=== PATIENT | female | born 1985 | race American Indian/Alaskan Native ===

== ENCOUNTER 2017-06-27 09:45 | Inpatient (IN) | payer MEDICAID ==
[2017-06-27] MEDS ORDERED: Butorphanol 1 MG/ML SDV IVPUSH PRN (10:15)
[2017-06-27] MEDS ORDERED: Methylergonovine 0.2 MG/1 ML Amp IM PRN (10:15)
[2017-06-27] MEDS ORDERED: Sodium Chloride 0.9% 10 ML Syringe FLUSH PRN (10:15)
[2017-06-27] MEDS ORDERED: Lidocaine 1% 50 ML MDV INJECT PRN (10:15)
[2017-06-27] MEDS ORDERED: Carboprost Tromethamine 250 MCG/1 ML Amp IM PRN (10:15)
[2017-06-27] MEDS ORDERED: Oxytocin/Lactated Ringers 30 UNIT/500 ML BAG IV SCH ×2 (10:15→13:45)
[2017-06-27] MEDS ORDERED: Sodium Chloride 0.9% 2.5 ML Syringe FLUSH PRN (10:15)
[2017-06-27] MEDS ORDERED: Misoprostol 200 MCG Tab PO PRN (10:15)
[2017-06-27] MEDS ORDERED: Water For Irrigation,Sterile 1,000 ML Container IRR PRN (10:15)
[2017-06-27] MEDS: Lactated Ringers 1,000 ML IV SCH ×4 (10:30→14:11)
--- NOTE | 2017-06-27 10:30 | PCM.LDHP ---
L&D History of Present Illness - General Date of Service: 06/27/17 Admit Problem/Dx: Patient Status Order with Admit Dx/Problem 06/27/17 10:15 Patient Status [ADT] Routine Admission Diagnosis/Problem Admission Diagnosis/Problem Source of Information: Patient History Limitations: Reports: No Limitations - History of Present Illness Improves with: Reports: None Worsens with: Reports: None Associated Symptoms: Reports: N - Related Data Allergies/Adverse Reactions: Allergies Allergy/AdvReac Type Severity Reaction Status Date / Time codeine Allergy Intermediate Itching Verified 07/15/16 22:32 Home Medications: Home Meds . 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 Musculoskeletal History: Reports: Other (See Below) Neurological History: Reports: None Psychiatric History: Reports: Anxiety Endocrine/Metabolic History: Reports: None Immunologic History: Reports: None Oncologic (Cancer) History: Reports: None Dermatologic History: Reports: None - Past Surgical History Other Musculoskeletal Surgeries/Procedures:: scoliosis Social & Family History - Tobacco Use Smoking Status *Q: Current Every Day Smoker Years of Tobacco use: 10 Packs/Tins Daily: 0.2 Used Tobacco, but Quit: No Month Tobacco Last Used: May Second Hand Smoke Exposure: Yes - Alcohol Use Days Per Week of Alcohol Use: 0 - Recreational Drug Use Recreational Drug Use: No Drug Use in Last 12 Months: Yes Recreational Drug Type: Reports: Marijuana/Hashish Recreational Drug Use Frequency: Socially H&P Review of Systems - Review of Systems: Review Of Systems: See Below General: Reports: No Symptoms HEENT: Reports: No Symptoms Pulmonary: Reports: No Symptoms Cardiovascular: Reports: No Symptoms Gastrointestinal: Reports: No Symptoms Genitourinary: Reports: No Symptoms Musculoskeletal: Reports: No Symptoms Skin: Reports: No Symptoms Psychiatric: Reports: No Symptoms Neurological: Reports: No Symptoms Hematologic/Lymphatic: Reports: No Symptoms Immunologic: Reports: No Symptoms L&D Exam - Exam Exam: See Below - Vital Signs Weight: 81.647 kg - OB Specific Contraction Intensity: Moderate Movement: Active Heart Tones: Present Presentation: Vertex - Bae Score Bae Score Cervix Position: Anterior Bae Score Consistency: Soft Bae Score Effacement: 51-70% Bae Score Dilation: 3-4 cm Bae Score Infant's Station: -1 ,0 Bae Score Total: 10 - Exam General: Alert, Oriented HEENT: PERRLA, Conjunctiva Clear, EACs Clear, EOMI, Hearing Intact, Mucosa Moist & [place], Nares Patent, Normal Nasal Septum, Posterior Pharynx Clear, TMs Clear Neck: Supple, Trachea Midline Lungs: Clear to Auscultation, Normal Respiratory Effort Cardiovascular: Regular Rate, Regular Rhythm GI/Abdominal Exam: Normal Bowel Sounds, Soft, Non-Tender, No Organomegaly, No Distention, No Abnormal Bruit, No Mass, Pelvis Stable Rectal Exam: Normal Exam, Normal Rectal Tone Genitourinary: Normal external exam, Normal bimanual exam, Normal speculum exam Back Exam: Normal Inspection, Full Range of Motion Extremities: Normal Inspection, Normal Range of Motion, Non-Tender, No Pedal Edema, Normal Capillary Refill Skin: Warm, Dry, Intact Neurological: Cranial Nerves Intact, Reflexes Equal Bilateral Psychiatric: Alert, Normal Affect, Normal Mood Problem List Initiated/Reviewed/Updated: Yes Orders Last 24hrs: Active Orders 24 hr Category Date Time Status Patient Status [ADT] Routine ADT 06/27/17 10:15 Active Heart Tones [RC] CONTINUOUS Care 06/27/17 10:15 Active Non Stress Test [RC] PER UNIT ROUTINE Care 06/27/17 10:15 Active May Shower [RC] ASDIRECTED Care 06/27/17 10:15 Active Notify Provider [RC] PRN Care 06/27/17 10:15 Active Up ad Kirsty [RC] ASDIRECTED Care 06/27/17 10:15 Active Vaginal Exam [RC] PRN Care 06/27/17 10:15 Active Vital Signs [RC] PER UNIT ROUTINE Care 06/27/17 10:15 Active Clear Liquid Diet [DIET] Diet 06/27/17 Lunch Active CBC W/O DIFF,HEMOGRAM [HEME] Routine Lab 06/27/17 10:15 Ordered TYPE AND SCREEN [BBK] Routine Lab 06/27/17 10:15 Ordered Butorphanol [Stadol] Med 06/27/17 10:15 Active 1 mg IVPUSH ASDIRECTED PRN Carboprost Tromethamine [Hemabate DS] Med 06/27/17 10:15 Active 250 mcg IM ASDIRECTED PRN Lactated Ringers [Ringers, Lactated] 1,000 ml Med 06/27/17 10:15 Active IV ASDIRECTED Lidocaine 1% [Xylocaine 1%] Med 06/27/17 10:15 Active 50 ml INJECT .ONCE PRN Methylergonovine [Methergine] Med 06/27/17 10:15 Active 0.2 mg IM ASDIRECTED PRN Misoprostol [Cytotec] Med 06/27/17 10:15 Active 200 mcg PO .ONCE PRN Oxytocin/Lactated Ringers [Pitocin in LR 30 Units/500 Med 06/27/17 10:15 Active ML] 30 unit in 500 ml IV ASDIRECTED Sodium Chloride 0.9% [Saline Flush] Med 06/27/17 10:15 Active 10 ml FLUSH ASDIRECTED PRN Sodium Chloride 0.9% [Saline Flush] Med 06/27/17 10:15 Active 2.5 ml FLUSH ASDIRECTED PRN Water For Irrigation,Sterile [Sterile Water for Med 06/27/17 10:15 Active Irrigation] 1,000 ml IRR ASDIRECTED PRN Scalp Electrode [WOMSER] Per Unit Routine Oth 06/27/17 10:15 Ordered Peripheral IV Insertion Adult [OM.PC] Routine Oth 06/27/17 10:15 Ordered Resuscitation Status Routine Resus Stat 06/27/17 10:15 Ordered Medication Orders Butorphanol Tartrate (Stadol) 1 mg IVPUSH ASDIRECTED PRN PRN Reason: Pain Carboprost Tromethamine (Hemabate Ds) 250 mcg IM ASDIRECTED PRN PRN Reason: Post Hemorrhage Lactated Ringer's (Ringers, Lactated) 1,000 mls @ 150 mls/hr IV ASDIRECTED HELIO Oxytocin/Lactated Ringer's (Pitocin In Lr 30 Units/500 Ml) 30 unit in 500 mls @ 999 mls/hr IV ASDIRECTED HELIO PRN Reason: 999 MUNITS/MIN Stop: 06/27/17 10:46 Lidocaine HCl (Xylocaine 1%) 50 ml INJECT .ONCE PRN PRN Reason: Laceration repair Methylergonovine Maleate (Methergine) 0.2 mg IM ASDIRECTED PRN PRN Reason: Post Hemorrhage Misoprostol (Cytotec) 200 mcg PO .ONCE PRN PRN Reason: Post Hemorrhage Sodium Chloride (Saline Flush) 10 ml FLUSH ASDIRECTED PRN PRN Reason: Keep Vein Open Sodium Chloride (Saline Flush) 2.5 ml FLUSH ASDIRECTED PRN PRN Reason: Keep Vein Open Sterile Water (Sterile Water For Irrigation) 1,000 ml IRR ASDIRECTED PRN PRN Reason: delivery Assessment/Plan Comment:: Term in active labor
[2017-06-27] MEDS ORDERED: fentaNYL 100 MCG/2 ML SDV ONE (11:04)
[2017-06-27] MEDS ORDERED: Ropivacaine HCl/PF 100 ML ONE (11:04)
[2017-06-27] MEDS ORDERED: Lidocaine 1% 50 ML MDV ONE (11:18)
[2017-06-27] MEDS ORDERED: Phenylephrine 1% 10 MG/ML SDV ONE (11:42)
--- NOTE | 2017-06-27 11:52 | PCM.PREANE ---
Preanesthetic Assessment - Anesthesia/Transfusion/Family Hx Anesthesia History: Prior Anesthesia Reaction (After review of previous records , it appears pt had severe respiratory depression related to the amount of narcotic she received during labor) Type of Anesthesia Reaction: Excessive Somnolence (with resp depression) Family History of Anesthesia Reaction: No Transfusion History: Prior Transfusion Without Reaction Intubation History: Unknown - Review of Systems General: No Symptoms Pulmonary: No Symptoms Cardiovascular: No Symptoms Gastrointestinal: No Symptoms Neurological: No Symptoms Other: Reports: Anxiety (SEVERE Anxiety related to the trauma of her last delivery) - Physical Assessment NPO Status Date: 06/27/17 NPO Status Time: 11:56 (sips/chips) Blood Pressure: 118/59 Height: 5 ft 4.8 in Weight: 180 lb ASA Class: 2 Mental Status: Alert & Oriented x3 Airway Class: Mallampati = 2 Dentition: Reports: Missing Tooth/Teeth ROM/Head Extension: Full Lungs: Clear to Auscultation, Normal Respiratory Effort Cardiovascular: Regular Rate, Regular Rhythm - Lab Values: Laboratory Last Values WBC 11.81 K/uL (4.0-11.0) H 06/27/17 10:31 RBC 4.93 M/uL (4.30-5.90) 06/27/17 10:31 Hgb 12.0 g/dL (12.0-16.0) 06/27/17 10:31 Hct 38.0 % (36.0-46.0) 06/27/17 10:31 MCV 77.1 fL (80.0-98.0) L 06/27/17 10:31 MCH 24.3 pg (27.0-32.0) L 06/27/17 10:31 MCHC 31.6 g/dL (31.0-37.0) 06/27/17 10:31 RDW Std Deviation 47.4 fl (28.0-62.0) 06/27/17 10:31 RDW Coeff of Kindra 17 % (11.0-15.0) H 06/27/17 10:31 Plt Count 342 K/uL (150-400) 06/27/17 10:31 MPV 9.70 fL (7.40-12.00) 06/27/17 10:31 Nucleated RBC % 0.0 /100WBC 06/27/17 10:31 Nucleated RBCs # 0 K/uL 06/27/17 10:31 Blood Type A POSITIVE 06/27/17 10:31 Antibody Screen NEGATIVE 06/27/17 10:31 - Allergies Allergies/Adverse Reactions: Allergies Allergy/AdvReac Type Severity Reaction Status Date / Time codeine Allergy Intermediate Itching Verified 07/15/16 22:32 - Blood Blood Available: No Product(s) Available: None - Anesthesia Plan Free Text/Narrative:: Labor Epidural - Acknowledgements Anesthesia Type Planned: Epidural Pt an Appropriate Candidate for the Planned Anesthesia: Yes Alternatives and Risks of Anesthesia Discussed w Pt/Guardian: Yes Pt/Guardian Understands and Agrees with Anesthesia Plan: Yes PreAnesthesia Questionnaire - Past Health History Medical/Surgical History: Denies Medical/Surgical History HEENT History: Reports: Other (See Below) Other HEENT History: hearing loss right side Cardiovascular History: Reports: None Respiratory History: Reports: Intubation, Previous (related to post op transfer after retained placenta with hemorrhage) Gastrointestinal History: Reports: None Genitourinary History: Reports: None 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: , 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 Musculoskeletal History: Reports: Other (See Below) (thoracic scoliosis) Neurological History: Reports: None Psychiatric History: Reports: Anxiety (SEVERE anxiety related last delivery/ intrathecal/retained placenta/ hemorrhage), Panic Attack Endocrine/Metabolic History: Reports: None Immunologic History: Reports: None Oncologic (Cancer) History: Reports: None Dermatologic History: Reports: None - Past Surgical History Female Surgical History: Reports: D&C (retained placenta post delivery coupled with hemorrhage) Other Musculoskeletal Surgeries/Procedures:: scoliosis - SUBSTANCE USE Smoking Status *Q: Current Every Day Smoker Tobacco Use Within Last Twelve Months: Cigarettes Second Hand Smoke Exposure: Yes Days Per Week of Alcohol Use: 0 Recreational Drug Use History: No Recreational Drug Type: Reports: Marijuana/Hashish - HOME MEDS Home Medications: Home Meds . [No Known Home Meds] 07/15/16 [History] - CURRENT (IN HOUSE) MEDS Current Meds: Current Medications Butorphanol Tartrate (Stadol) 1 mg IVPUSH ASDIRECTED PRN PRN Reason: Pain Carboprost Tromethamine (Hemabate Ds) 250 mcg IM ASDIRECTED PRN PRN Reason: Post Hemorrhage Lactated Ringer's (Ringers, Lactated) 1,000 mls @ 150 mls/hr IV ASDIRECTED [facility] Last Admin: 06/27/17 11:07 Dose: 150 mls/hr Lidocaine HCl (Xylocaine 1%) 50 ml INJECT .ONCE PRN PRN Reason: Laceration repair Methylergonovine Maleate (Methergine) 0.2 mg IM ASDIRECTED PRN PRN Reason: Post Hemorrhage Misoprostol (Cytotec) 200 mcg PO .ONCE PRN PRN Reason: Post Hemorrhage Sodium Chloride (Saline Flush) 10 ml FLUSH ASDIRECTED PRN PRN Reason: Keep Vein Open Sodium Chloride (Saline Flush) 2.5 ml FLUSH ASDIRECTED PRN PRN Reason: Keep Vein Open Sterile Water (Sterile Water For Irrigation) 1,000 ml IRR ASDIRECTED PRN PRN Reason: delivery Discontinued Medications Fentanyl (Sublimaze) Confirm Administered Dose 100 mcg .ROUTE .STK-MED ONE Stop: 06/27/17 11:05 Oxytocin/Lactated Ringer's (Pitocin In Lr 30 Units/500 Ml) 30 unit in 500 mls @ 999 mls/hr IV ASDIRECTED [facility] PRN Reason: 999 MUNITS/MIN Stop: 06/27/17 10:46 Ropivacaine (Naropin 0.2%) Confirm Administered Dose 100 mls @ as directed .ROUTE .STK-MED ONE Stop: 06/27/17 11:05 Lidocaine HCl (Xylocaine 1%) Confirm Administered Dose 50 ml .ROUTE .STK-MED ONE Stop: 06/27/17 11:19
[2017-06-27] MEDS ORDERED: Terbutaline 1 MG/ML SDV SUBCUT PRN (13:41)
[2017-06-27] MEDS ORDERED: Ibuprofen 800 MG Tab PO PRN (15:01)
[2017-06-27] MEDS ORDERED: Benzocaine/Menthol 20%-0.5% Spray 78 GM Cannister TOP PRN (15:01)
[2017-06-27] MEDS ORDERED: Bisacodyl 10 MG Supp RECTAL PRN (15:01)
[2017-06-27] MEDS ORDERED: Ibuprofen 400 MG Tab PO PRN (15:01)
[2017-06-27] MEDS ORDERED: Lanolin 100% Cream 7 GM Tube TOP PRN (15:01)
[2017-06-27] MEDS ORDERED: Docusate Sodium 100 MG Cap PO PRN (15:01)
[2017-06-27] MEDS ORDERED: Acetaminophen 500 MG Tab PO PRN (15:01)
[2017-06-27] MEDS ORDERED: Witch Hazel Medicated Pads 40/Jar TOP PRN (15:01)
[2017-06-27] MEDS ORDERED: oxyCODONE 5 MG Tab PO PRN (15:01)
--- NOTE | 2017-06-27 16:05 | PCM48HPAN ---
Post Anesthesia Note - EVALUATION WITHIN 48HRS OF ANESTHETIC Vital Signs in Normal Range: Yes Patient Participated in Evaluation: Yes Respiratory Function Stable: Yes Airway Patent: Yes Cardiovascular Function Stable: Yes Hydration Status Stable: Yes Pain Control Satisfactory: Yes Nausea and Vomiting Control Satisfactory: Yes Mental Status Recovered: Yes - COMMENTS/OBSERVATIONS Free Text/Narrative:: Pt doing well an hour post delivery. Epidural worked great and pt is very thankful for a good experience this delivery. No problems with bleeding postop. No apparent anesthesia complications.
[2017-06-27] MEDS: Acetaminophen 500 MG Tab PO PRN (22:31)
--- NOTE | 2017-06-27 23:56 | OR ---
SURGEON: Brandyn Pope MD DATE OF PROCEDURE: DELIVERY NOTE: Ms. Blank is a 32-year-old patient, she para 3-0-0-3. She is term. She is followed in our clinic primarily by our nurse software systems analyst. She had no problem. Her GBS status was negative. She is admitted early this morning in active labor. At the time of admission, she was 4 to 5 cm complete with bulging bag of water, vertex, and -1 station. The patient is admitted to the hospital where she had epidural anesthesia for labor analgesia. Then, she had an artificial rupture of the membrane by me. The patient required very low-dose Pitocin. She progressed to complete-complete without any problem. She was able to accomplish normal spontaneous vaginal delivery of a female fetus. score was reported to be 8 and 9 and the weight was not available. The placenta delivered spontaneous, complete, and intact. There was no perineal laceration. There is no labial laceration. Estimated blood loss in this 250-300 mL. No complication. heart rate was category one through the entire process of labor. CONCEPCIÓN / PATRICIA /[id number]
[2017-06-28] MEDS: Acetaminophen 500 MG Tab PO PRN ×3 (05:29→16:07)
--- NOTE | 2017-06-28 09:08 | PCM.PNPP ---
- General Info Date of Service: 06/28/17 Functional Status: Reports: Pain Controlled - Review of Systems General: Reports: No Symptoms HEENT: Reports: No Symptoms Pulmonary: Reports: No Symptoms Cardiovascular: Reports: No Symptoms Gastrointestinal: Reports: No Symptoms Genitourinary: Reports: No Symptoms Musculoskeletal: Reports: No Symptoms Skin: Reports: No Symptoms Neurological: Reports: No Symptoms Psychiatric: Reports: No Symptoms - General Info Date of Service: 06/28/17 - Patient Data Vital Signs - Most Recent: Last Vital Signs Temp 36.4 C 06/28/17 05:35 Pulse 97 06/28/17 05:35 Resp 16 06/28/17 05:35 BP 109/63 06/28/17 05:35 Pulse Ox 97 06/28/17 05:35 Weight - Most Recent: 81.647 kg Lab Results - Last 24 Hours: Laboratory Results - last 24 hr 06/27/17 06/27/17 06/28/17 Range/Units 10:31 10:31 04:58 WBC 11.81 H (4.0-11.0) K/uL RBC 4.93 (4.30-5.90) M/uL Hgb 12.0 10.3 L (12.0-16.0) g/dL Hct 38.0 33.0 L (36.0-46.0) % MCV 77.1 L (80.0-98.0) fL MCH 24.3 L (27.0-32.0) pg MCHC 31.6 (31.0-37.0) g/dL RDW Std Deviation 47.4 (28.0-62.0) fl RDW Coeff of Kindra 17 H (11.0-15.0) % Plt Count 342 (150-400) K/uL MPV 9.70 (7.40-12.00) fL Nucleated RBC % 0.0 /100WBC Nucleated RBCs # 0 K/uL Blood Type A POSITIVE Antibody Screen NEGATIVE Med Orders - Current: Current Medications Acetaminophen (Tylenol Extra Strength) 500 mg PO Q4H PRN PRN Reason: Pain Acetaminophen (Tylenol Extra Strength) 1,000 mg PO Q4H PRN PRN Reason: Pain Last Admin: 06/28/17 05:29 Dose: 1,000 mg Benzocaine/Menthol (Dermoplast Pain Relief 20%-0.5% [place]) 78 gm TOP ASDIRECTED PRN PRN Reason: Perineal Comfort Measure Bisacodyl (Dulcolax) 10 mg RECTAL .ONCE PRN PRN Reason: Constipation Butorphanol Tartrate (Stadol) 1 mg IVPUSH ASDIRECTED PRN PRN Reason: Pain Carboprost Tromethamine (Hemabate Ds) 250 mcg IM ASDIRECTED PRN PRN Reason: Post Hemorrhage Docusate Sodium (Colace) 100 mg PO BID PRN PRN Reason: Constipation Emollient Ointment (Lansinoh Hpa) 0 gm TOP ASDIRECTED PRN PRN Reason: Sore Nipples Lactated Ringer's (Ringers, Lactated) 1,000 mls @ 150 mls/hr IV ASDIRECTED HELIO Last Admin: 06/27/17 14:11 Dose: 150 mls/hr Oxytocin/Lactated Ringer's (Pitocin In Lr 30 Units/500 Ml) 30 unit in 500 mls @ 2 mls/hr IV TITRATE HELIO; 2 MUNITS/MIN PRN Reason: Protocol Last Admin: 06/27/17 14:12 Dose: 2 munits/min, 2 mls/hr Ibuprofen (Motrin) 400 mg PO Q4H PRN PRN Reason: Pain Ibuprofen (Motrin) 800 mg PO Q6H PRN PRN Reason: Pain Last Admin: 06/27/17 20:43 Dose: 800 mg Lidocaine HCl (Xylocaine 1%) 50 ml INJECT .ONCE PRN PRN Reason: Laceration repair Methylergonovine Maleate (Methergine) 0.2 mg IM ASDIRECTED PRN PRN Reason: Post Hemorrhage Misoprostol (Cytotec) 200 mcg PO .ONCE PRN PRN Reason: Post Hemorrhage Oxycodone HCl (Oxycodone) 5 mg PO Q2H PRN PRN Reason: Pain Sodium Chloride (Saline Flush) 10 ml FLUSH ASDIRECTED PRN PRN Reason: Keep Vein Open Sodium Chloride (Saline Flush) 2.5 ml FLUSH ASDIRECTED PRN PRN Reason: Keep Vein Open Sterile Water (Sterile Water For Irrigation) 1,000 ml IRR ASDIRECTED PRN PRN Reason: delivery Terbutaline Sulfate (Brethine) 0.25 mg SUBCUT ASDIRECTED PRN PRN Reason: Tacysystole Witch Leola (Tucks) 1 pad TOP ASDIRECTED PRN PRN Reason: comfort care Discontinued Medications Fentanyl (Sublimaze) Confirm Administered Dose 100 mcg .ROUTE .STK-MED ONE Stop: 06/27/17 11:05 Oxytocin/Lactated Ringer's (Pitocin In Lr 30 Units/500 Ml) 30 unit in 500 mls @ 999 mls/hr IV ASDIRECTED HELIO PRN Reason: 999 MUNITS/MIN Stop: 06/27/17 10:46 Ropivacaine (Naropin 0.2%) Confirm Administered Dose 100 mls @ as directed .ROUTE .STK-MED ONE Stop: 06/27/17 11:05 Lidocaine HCl (Xylocaine 1%) Confirm Administered Dose 50 ml .ROUTE .STK-MED ONE Stop: 06/27/17 11:19 Phenylephrine HCl (Kody-Synephrine) Confirm Administered Dose 10 mg .ROUTE .STK- MED ONE Stop: 06/27/17 11:43 - Infant Interaction Infant Disposition, : in Room with Family Interaction: Holding Infant Feeding: Attempted ; Nursed Fair/Poor Support Person: - Recovery Exam Fundal Tone: Firm Fundal Level: At Umbilicus Fundal Placement: Midline Lochia Amount: Small Lochia Color: Rubra/Red Perineum Description: Intact, Minimal Bruising/Swelling Episiotomy/Laceration: None Bladder Status: Voiding Urinary Elimination: Voided - Exam General: Alert, Oriented HEENT: Pupils Equal Neck: Supple Lungs: Clear to Auscultation, Normal Respiratory Effort Cardiovascular: Regular Rate, Regular Rhythm GI/Abdominal Exam: Normal Bowel Sounds, Soft, Non-Tender, No Organomegaly, No Distention, No Abnormal Bruit, No Mass, Pelvis Stable Extremities: Normal Inspection, Normal Range of Motion, Non-Tender, No Pedal Edema, Normal Capillary Refill Skin: Warm, Dry, Intact Wound/Incisions: Healing Well Neurological: No New Focal Deficit Psy/Mental Status: Alert, Normal Affect, Normal Mood - Problem List Review Problem List Initiated/Reviewed/Updated: Yes - My Orders Last 24 Hours: My Active Orders 06/27/17 10:15 May Shower [RC] ASDIRECTED Butorphanol [Stadol] 1 mg IVPUSH ASDIRECTED PRN Carboprost Tromethamine [Hemabate DS] 250 mcg IM ASDIRECTED PRN Lactated Ringers [Ringers, Lactated] 1,000 ml IV ASDIRECTED Lidocaine 1% [Xylocaine 1%] 50 ml INJECT .ONCE PRN Methylergonovine [Methergine] 0.2 mg IM ASDIRECTED PRN Misoprostol [Cytotec] 200 mcg PO .ONCE PRN Sodium Chloride 0.9% [Saline Flush] 10 ml FLUSH ASDIRECTED PRN Sodium Chloride 0.9% [Saline Flush] 2.5 ml FLUSH ASDIRECTED PRN Water For Irrigation,Sterile [Sterile Water for Irrigation] 1,000 ml IRR ASDIRECTED PRN Scalp Electrode [WOMSER] Per Unit Routine Peripheral IV Insertion Adult [OM.PC] Routine Resuscitation Status Routine 06/27/17 13:41 Bedrest Bathroom Privileges [RC] ASDIRECTED Vital Signs [RC] PER UNIT ROUTINE Terbutaline [Brethine] 0.25 mg SUBCUT ASDIRECTED PRN 06/27/17 13:45 Oxytocin/Lactated Ringers [Pitocin in LR 30 Units/500 ML] 30 unit in 500 ml IV TITRATE Medication Administration Instruction [OM.PC] Q3H 06/27/17 15:01 Patient Status [ADT] Routine Up ad Kirsty [RC] ASDIRECTED Acetaminophen [Tylenol Extra Strength] 1,000 mg PO Q4H PRN Acetaminophen [Tylenol Extra Strength] 500 mg PO Q4H PRN Benzocaine/Menthol [Dermoplast Pain Relief 20%-0.5% [place]] 78 gm TOP ASDIRECTED PRN Bisacodyl [Dulcolax] 10 mg RECTAL .ONCE PRN Docusate Sodium [Colace] 100 mg PO BID PRN Ibuprofen [Motrin] 400 mg PO Q4H PRN Ibuprofen [Motrin] 800 mg PO Q6H PRN Lanolin [Lansinoh HPA] See Dose Instructions TOP ASDIRECTED PRN Witch Leola [Tucks] 1 pad TOP ASDIRECTED PRN oxyCODONE 5 mg PO Q2H PRN Assess Lochia [WOMSER] Per Unit Routine Assess Uterine Involution [WOMSER] Per Unit Routine Peripheral IV Discontinue [OM.PC] Routine - Plan Plan:: Term in active labor
[2017-06-28 18:07] VITALS: BP 119/75
== END 2017-06-28 17:45 | disposition home or self-care (01) | DRG 775 ==
LOC: MW.OBCHECK 09:45 → MW.OB 09:47 → OBSVTOIN 14:54 → MW.OBCHECK 14:57
PROVIDERS: ADMIT Obstetrics & Gynecology; ATTEND Obstetrics & Gynecology
PROC: 10E0XZZ Delivery of Products of Conception, External Approach (ICD-10-PCS; principal; 2017-06-27)
PROC: 10907ZC Drainage of Amniotic Fluid, Therapeutic from Products of Conception, Via Natural or Artificial Opening (ICD-10-PCS; 2017-06-27)
DX: O80 Encounter for full-term uncomplicated delivery (principal); Z3A.40 40 weeks gestation of pregnancy; Z37.0 Single live birth
CPT/HCPCS: 36415; 59025; 85014; 85018; 85027; 86850; 86900; 86901; A9270-GY; J2370; J2795; J3010; J7120

== ENCOUNTER 2017-09-15 08:42 | Emergency (ER) | payer MEDICAID, OTHER ==
--- NOTE | 2017-09-15 09:06 | EDM.PDOC ---
ED HPI GENERAL MEDICAL PROBLEM - General Chief Complaint: Back Pain or Injury Stated Complaint: LOWER BACK PAIN Time Seen by Provider: 09/15/17 09:04 Source of Information: Reports: Patient - History of Present Illness INITIAL COMMENTS - FREE TEXT/NARRATIVE: I went in to see the patient, she had left AMA prior to my arrival in the room I am not certain why she would leave AMA as she was just triaged in back Pain Score (Numeric/FACES): 8 - Related Data Allergies Allergy/AdvReac Type Severity Reaction Status Date / Time codeine Allergy Intermediate Itching Verified 09/15/17 08:49 Home Meds: Home Meds Multivitamin [Multivitamins] 1 each PO DAILY 09/15/17 [History] Past Medical History - Past Health History Medical/Surgical History: Denies Medical/Surgical History HEENT History: Reports: Other (See Below) Other HEENT History: hearing loss right side Cardiovascular History: Reports: None Respiratory History: Reports: Intubation, Previous Gastrointestinal History: Reports: None Genitourinary History: Reports: None 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: , 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 Musculoskeletal History: Reports: Other (See Below) Neurological History: Reports: None Psychiatric History: Reports: Anxiety, Panic Attack Endocrine/Metabolic History: Reports: None Immunologic History: Reports: None Oncologic (Cancer) History: Reports: None Dermatologic History: Reports: None - Infectious Disease History Infectious Disease History: Reports: Chicken Pox - Past Surgical History Female Surgical History: Reports: D&C Other Musculoskeletal Surgeries/Procedures:: scoliosis Social & Family History - Family History Family Medical History: Noncontributory - Tobacco Use Smoking Status *Q: Never Smoker Years of Tobacco use: 10 Packs/Tins Daily: 0.2 Used Tobacco, but Quit: No Month Tobacco Last Used: May Second Hand Smoke Exposure: Yes - Alcohol Use Days Per Week of Alcohol Use: 0 - Recreational Drug Use Recreational Drug Use: No Drug Use in Last 12 Months: Yes Recreational Drug Type: Reports: Marijuana/Hashish Recreational Drug Use Frequency: Socially ED ROS GENERAL - Review of Systems Review Of Systems: ROS reveals no pertinent complaints other than HPI. ED EXAM, GENERAL - Physical Exam Exam: See Below Course - Vital Signs Last Recorded V/S: Last Vital Signs Temp 36.5 C 09/15/17 08:49 Pulse 88 09/15/17 08:49 Resp 18 09/15/17 08:49 BP 99/69 09/15/17 08:49 Pulse Ox 97 09/15/17 08:49 Departure - Departure Time of Disposition: 09:05 Disposition: Against Medical Advice 07 Condition: Undetermined Clinical Impression: Complains of low back pain - Discharge Information Referrals: Chiqui Keyes CNM [Primary Care Provider] -
[2017-09-15 09:16] VITALS: BP 99/69
== END 2017-09-15 09:08 | disposition left against medical advice (07) ==
LOC: MW.ED 08:42
DX: Z53.21 Procedure and treatment not carried out due to patient leaving prior to being seen by health care provider (principal)

== ENCOUNTER 2017-11-12 09:16 | Emergency (ER) | payer MEDICAID ==
[2017-11-12 09:39] VITALS: BP 98/43
[2017-11-12] MEDS ORDERED: Morphine 2 MG/ML Syringe IVPUSH ONE (09:49)
--- NOTE | 2017-11-12 09:52 | EDM.PDOC ---
ED HPI GENERAL MEDICAL PROBLEM - General Chief Complaint: Skin Complaint Stated Complaint: RASHES ALL OVER BODY Time Seen by Provider: 11/12/17 09:51 Source of Information: Reports: Patient - History of Present Illness INITIAL COMMENTS - FREE TEXT/NARRATIVE: HISTORY AND PHYSICAL: History of present illness: [Patient presents with pain and areas of redness warmth and induration on her back one small area left flank approximately 1-1/4 inch in diameter no fluctuance but firm and very tender, she has a larger palms sized area over the right shoulder very firm very tender warm no fluctuance No fever nausea vomiting chills sweats ] Review of systems: As per history of present illness and below otherwise all systems reviewed and negative. Past medical history: As per history of present illness and as reviewed below otherwise noncontributory. Surgical history: As per history of present illness and as reviewed below otherwise noncontributory. Social history: No reported history of drug or alcohol abuse. Family history: As per history of present illness and as reviewed below otherwise noncontributory. Physical exam: HEENT: Atraumatic, normocephalic, pupils reactive, negative for conjunctival pallor or scleral icterus, mucous membranes moist, throat clear, neck supple, nontender, trachea midline. Lungs: Clear to auscultation, breath sounds equal bilaterally, chest nontender. Heart: S1S2, regular, negative for clicks, rubs, or JVD. Abdomen: Soft, nondistended, nontender. Negative for masses or hepatosplenomegaly. Negative for costovertebral tenderness. Pelvis: Stable nontender. Genitourinary: Deferred. Rectal: Deferred. Extremities: Atraumatic, negative for cords or calf pain. Neurovascular unremarkable. Neuro: Awake, alert, oriented. Cranial nerves II through XII unremarkable. Cerebellum unremarkable. Motor and sensory unremarkable throughout. Exam nonfocal. Diagnostics: [CBC CMP UA blood cultures 2 ] Therapeutics: [Normal saline 1.5 mL per hour Vancomycin 1 g IV Morphine 2 mg IV She refused all lab she refused any IV medications or fluids she refuses admission, she did have some low blood pressure on arrival this may have been due to cuff size it is unclear but I was concerned about sepsis voices she refuses to stay despite being informed of possible loss of life or permanent morbidity mortality she voices understanding stating that she would prefer to just at home, she is now being quite obstinate were on arrival she was requesting treatment. Now she will only allow oral treatments and requests/ desires to leave AGAINST MEDICAL ADVICE A prescription for Bactrim double strength by mouth twice a day #20 no refill Percocet 5 mg by mouth now and every 6 hours when necessary prescription provided Patient is certainly extended invitation to return as needed ] Impression: [Cellulitis] Definitive disposition and diagnosis as appropriate pending reevaluation and review of above. spider bites Pain Score (Numeric/FACES): 10 - Related Data Allergies Allergy/AdvReac Type Severity Reaction Status Date / Time codeine Allergy Intermediate Itching Verified 11/12/17 09:35 Home Meds: Home Meds Multivitamin [Multivitamins] 1 each PO DAILY 09/15/17 [History] Past Medical History - Past Health History Medical/Surgical History: Denies Medical/Surgical History HEENT History: Reports: Other (See Below) Other HEENT History: hearing loss right side Cardiovascular History: Reports: None Respiratory History: Reports: Intubation, Previous Gastrointestinal History: Reports: None Genitourinary History: Reports: None 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: , 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 Musculoskeletal History: Reports: Other (See Below) Neurological History: Reports: None Psychiatric History: Reports: Anxiety, Panic Attack Endocrine/Metabolic History: Reports: None Immunologic History: Reports: None Oncologic (Cancer) History: Reports: None Dermatologic History: Reports: None - Infectious Disease History Infectious Disease History: Reports: Chicken Pox - Past Surgical History Female Surgical History: Reports: D&C Other Musculoskeletal Surgeries/Procedures:: scoliosis Social & Family History - Family History Family Medical History: Noncontributory - Tobacco Use Smoking Status *Q: Current Every Day Smoker Years of Tobacco use: 2 Packs/Tins Daily: 0.5 Used Tobacco, but Quit: No Month Tobacco Last Used: May Second Hand Smoke Exposure: Yes - Alcohol Use Days Per Week of Alcohol Use: 0 - Recreational Drug Use Recreational Drug Use: No Drug Use in Last 12 Months: Yes Recreational Drug Type: Reports: Marijuana/Hashish Recreational Drug Use Frequency: Socially ED ROS GENERAL - Review of Systems Review Of Systems: ROS reveals no pertinent complaints other than HPI. ED EXAM, SKIN/RASH Exam: See Below Course - Vital Signs Last Recorded V/S: Last Vital Signs Temp 97.2 F 11/12/17 09:35 Pulse 105 H 11/12/17 09:35 Resp 20 11/12/17 09:35 BP 98/43 L 11/12/17 09:35 Pulse Ox 100 11/12/17 09:35 - Orders/Labs/Meds Orders: Active Orders 24 hr Category Date Time Status CBC WITH AUTO DIFF [HEME] Stat Lab 11/12/17 09:48 Ordered COMPREHENSIVE METABOLIC PN,CMP [CHEM] Stat Lab 11/12/17 09:49 Ordered CULTURE BLOOD [BC] Stat Lab 11/12/17 09:50 Ordered CULTURE BLOOD [BC] Stat Lab 11/12/17 09:50 Ordered LACTIC ACID,WHOLE BLOOD [BG] Stat Lab 11/12/17 09:53 Ordered UA W/MICROSCOPIC [URIN] Stat Lab 11/12/17 09:49 Uncollected Sodium Chloride 0.9% [Normal Saline] 1,000 ml Med 11/12/17 09:53 Active IV STAT Sodium Chloride 0.9% [Normal Saline] 1,000 ml Med 11/12/17 10:00 Active IV STAT Vancomycin [Vancocin] 1 gm Med 11/12/17 09:49 Active Sodium Chloride 0.9% [Normal Saline] 250 ml IV ONETIME Blood Culture x2 Reflex Set [OM.PC] Stat Oth 11/12/17 09:49 Ordered Medication Orders Sodium Chloride (Normal Saline) 1,000 mls @ 125 mls/hr IV STAT HELIO Vancomycin HCl 1 gm/ Sodium (Chloride) 250 mls @ 250 mls/hr IV ONETIME ONE Stop: 11/12/17 10:48 Sodium Chloride (Normal Saline) 1,000 mls @ 999 mls/hr IV STAT ONE Stop: 11/12/17 10:53 Meds: Medications Generic Name Dose Route Start Last Admin Trade Name Freq PRN Reason Stop Dose Admin Sodium Chloride 1,000 mls @ 125 mls/hr 11/12/17 10:00 Normal Saline IV STAT HELIO Vancomycin HCl 1 gm/ Sodium 250 mls @ 250 mls/hr 11/12/17 09:49 Chloride IV 11/12/17 10:48 ONETIME ONE Sodium Chloride 1,000 mls @ 999 mls/hr 11/12/17 09:53 Normal Saline IV 11/12/17 10:53 STAT ONE Discontinued Medications Generic Name Dose Route Start Last Admin Trade Name Freq PRN Reason Stop Dose Admin Morphine Sulfate 2 mg 11/12/17 09:49 Morphine IVPUSH 11/12/17 09:50 ONETIME ONE Departure - Departure Time of Disposition: 10:04 Disposition: Against Medical Advice 07 Condition: Poor Clinical Impression: Cellulitis - Discharge Information Referrals: PCP,None [Primary Care Provider] - Forms: ED Department Discharge Additional Instructions: The following information is given to patients seen in the emergency department who are being discharged to home. This information is to outline your options for follow-up care. We provide all patients seen in our emergency department with a follow-up referral. The need for follow-up, as well as the timing and circumstances, are variable depending upon the specifics of your emergency department visit. If you don't have a primary care physician on staff, we will provide you with a referral. We always advise you to contact your personal physician following an emergency department visit to inform them of the circumstance of the visit and for follow-up with them and/or the need for any referrals to a consulting specialist. The emergency department will also refer you to a specialist when appropriate. This referral assures that you have the opportunity for follow-up care with a specialist. All of these measure are taken in an effort to provide you with optimal care, which includes your follow-up. Under all circumstances we always encourage you to contact your private physician who remains a resource for coordinating your care. When calling for follow-up care, please make the office aware that this follow-up is from your recent emergency room visit. If for any reason you are refused follow-up, please contact the [facility] emergency department at and asked to speak to the emergency department charge nurse. - My Orders Last 24 Hours: My Active Orders 11/12/17 09:48 CBC WITH AUTO DIFF [HEME] Stat 11/12/17 09:49 COMPREHENSIVE METABOLIC PN,CMP [CHEM] Stat UA W/MICROSCOPIC [URIN] Stat Vancomycin [Vancocin] 1 gm Sodium Chloride 0.9% [Normal Saline] 250 ml IV ONETIME Blood Culture x2 Reflex Set [OM.PC] Stat 11/12/17 09:50 CULTURE BLOOD [BC] Stat CULTURE BLOOD [BC] Stat 11/12/17 09:53 LACTIC ACID,WHOLE BLOOD [BG] Stat Sodium Chloride 0.9% [Normal Saline] 1,000 ml IV STAT 11/12/17 10:00 Sodium Chloride 0.9% [Normal Saline] 1,000 ml IV STAT - Assessment/Plan Last 24 Hours: My Active Orders 11/12/17 09:48 CBC WITH AUTO DIFF [HEME] Stat 11/12/17 09:49 COMPREHENSIVE METABOLIC PN,CMP [CHEM] Stat UA W/MICROSCOPIC [URIN] Stat Vancomycin [Vancocin] 1 gm Sodium Chloride 0.9% [Normal Saline] 250 ml IV ONETIME Blood Culture x2 Reflex Set [OM.PC] Stat 11/12/17 09:50 CULTURE BLOOD [BC] Stat CULTURE BLOOD [BC] Stat 11/12/17 09:53 LACTIC ACID,WHOLE BLOOD [BG] Stat Sodium Chloride 0.9% [Normal Saline] 1,000 ml IV STAT 11/12/17 10:00 Sodium Chloride 0.9% [Normal Saline] 1,000 ml IV STAT
[2017-11-12] MEDS ORDERED: Sodium Chloride 0.9% 1,000 ML IV ONE (09:53)
[2017-11-12] MEDS ORDERED: Sodium Chloride 0.9% 1,000 ML IV SCH (10:00)
[2017-11-12] MEDS ORDERED: Acetaminophen/oxyCODONE 325-7.5 MG Tab PO ONE (10:06)
[2017-11-12] MEDS ORDERED: Sulfamethoxazole/Trimethoprim 800-160 MG Tab PO ONE (10:08)
== END 2017-11-12 10:20 | disposition left against medical advice (07) ==
LOC: MW.ED 09:16
DX: L03.311 Cellulitis of abdominal wall (principal); Z88.5 Allergy status to narcotic agent; F17.210 Nicotine dependence, cigarettes, uncomplicated
CPT/HCPCS: 99282; A9270; 99283

== ENCOUNTER 2018-08-04 13:50 | Emergency (ER) | payer MEDICAID, SELFPAY ==
[2018-08-04 14:12] VITALS: BP 111/80
[2018-08-04] MEDS ORDERED: Ketorolac 60 MG/2 ML SDV IM ONE (14:14)
--- NOTE | 2018-08-04 14:37 | EDM.PDOC ---
ED HPI GENERAL MEDICAL PROBLEM - General Chief Complaint: Respiratory Problem Stated Complaint: COUGH Time Seen by Provider: 08/04/18 13:55 Source of Information: Reports: Patient History Limitations: Reports: No Limitations - History of Present Illness INITIAL COMMENTS - FREE TEXT/NARRATIVE: History of present illness: []Patient has had chest pain with severe cough for the past 2 weeks, she was cleaning 4 days ago and felt severe low back pain. Patient denies any numbness, tingling or urinary or fecal incontinence. Review of systems: As per history of present illness and below otherwise all systems reviewed and negative. Past medical history: As per history of present illness and as reviewed below otherwise noncontributory. Surgical history: As per history of present illness and as reviewed below otherwise noncontributory. Social history: No reported history of drug or alcohol abuse. Family history: As per history of present illness and as reviewed below otherwise noncontributory. Physical exam: General: Well developed, well nourished in NAD HEENT: Atraumatic, normocephalic, pupils reactive, negative for conjunctival pallor or scleral icterus, mucous membranes moist, throat clear, neck supple, nontender, trachea midline. Lungs: Coarse sounds to auscultation, equal bilaterally, chest nontender. Heart: S1S2, regular, negative for clicks, rubs, or JVD. Abdomen: Soft, nondistended, nontender. Negative for masses or hepatosplenomegaly. Negative for costovertebral tenderness. Pelvis: Stable nontender. Genitourinary: Deferred. Rectal: Deferred. Extremities: Atraumatic, negative for cords or calf pain. Neurovascular unremarkable. Neuro: Awake, alert, oriented. Cranial nerves II through XII unremarkable. Cerebellum unremarkable. Motor and sensory unremarkable throughout. Exam nonfocal. Skin:warm and dry Diagnostics: Chest x-ray, UA, hCG all negative Therapeutics: Toradol IM ED Course: unremarkable Impression: Acute bronchitis, lumbar strain Prescriptions: Dale Corrales, Plan: ibuprofen and ice for pain, take prescribes meds and follow up with primary care 12 days return if symptoms worsen or change. Definitive disposition and diagnosis as appropriate pending reevaluation and review of above. Lower Back Pain Score (Numeric/FACES): 10 - Related Data Allergies Allergy/AdvReac Type Severity Reaction Status Date / Time codeine Allergy Intermediate Itching Verified 08/04/18 14:12 acetaminophen Allergy Itching Verified 08/04/18 14:12 [From Tylenol-Codeine #3] hydrocodone Allergy Itching Verified 08/04/18 14:12 Home Meds: Home Meds Azithromycin [Zithromax] 250 mg PO DAILY #6 tab 08/04/18 [Rx] Benzonatate [Tessalon Perle] 100 mg PO TID PRN #20 capsule 08/04/18 [Rx] Past Medical History - Past Health History Medical/Surgical History: Denies Medical/Surgical History HEENT History: Reports: Other (See Below) Other HEENT History: hearing loss right side Cardiovascular History: Reports: None Respiratory History: Reports: Intubation, Previous Gastrointestinal History: Reports: None Genitourinary History: Reports: None 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: , 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 Musculoskeletal History: Reports: Other (See Below) Neurological History: Reports: None Psychiatric History: Reports: Anxiety, Panic Attack Endocrine/Metabolic History: Reports: None Immunologic History: Reports: None Oncologic (Cancer) History: Reports: None Dermatologic History: Reports: None - Infectious Disease History Infectious Disease History: Reports: Chicken Pox, MRSA - Past Surgical History Female Surgical History: Reports: D&C Other Musculoskeletal Surgeries/Procedures:: scoliosis Social & Family History - Family History Family Medical History: Noncontributory - Tobacco Use Smoking Status *Q: Current Every Day Smoker Years of Tobacco use: 12 Packs/Tins Daily: 0.5 - Caffeine Use Caffeine Use: Reports: Coffee - Recreational Drug Use Recreational Drug Use: No ED ROS GENERAL - Review of Systems Review Of Systems: ROS reveals no pertinent complaints other than HPI. ED EXAM, GENERAL - Physical Exam Exam: See Below (See history of present illness) Course - Vital Signs Last Recorded V/S: Last Vital Signs Temp 98.0 F 08/04/18 14:08 Pulse 116 H 08/04/18 14:08 Resp 21 H 08/04/18 14:08 BP 111/80 08/04/18 14:08 Pulse Ox 98 08/04/18 14:08 - Orders/Labs/Meds Orders: Active Orders 24 hr Category Date Time Status Chest 2V [CR] Stat Exams 08/04/18 14:13 Taken Labs: Laboratory Tests 08/04/18 08/04/18 Range/Units 14:24 14:24 Urine Color YELLOW Urine Appearance SLT CLOUDY Urine pH 7.5 (5.0-8.0) Ur Specific [place] 1.020 (1.001-1.035) Urine Protein NEGATIVE (NEGATIVE) mg/dL Urine Glucose (UA) NEGATIVE (NEGATIVE) mg/dL Urine Ketones NEGATIVE (NEGATIVE) mg/dL Urine Occult Blood NEGATIVE (NEGATIVE) Urine Nitrite NEGATIVE (NEGATIVE) Urine Bilirubin NEGATIVE (NEGATIVE) Urine Urobilinogen 0.2 (<2.0) EU/dL Ur Leukocyte Esterase NEGATIVE (NEGATIVE) Urine RBC 0-1 (0-2/HPF) Urine WBC 0-4 (0-5/HPF) Ur Epithelial Cells FEW (NONE-FEW) Urine Bacteria FEW (NEGATIVE) Urine HCG, Qual NEGATIVE (NEGATIVE) Meds: Medications Discontinued Medications Generic Name Dose Route Start Last Admin Trade Name Freq PRN Reason Stop Dose Admin Ketorolac Tromethamine 60 mg 08/04/18 14:14 08/04/18 14:34 Toradol IM 08/04/18 14:15 60 mg ONETIME ONE Administration Departure - Departure Time of Disposition: 15:10 Disposition: Home, Self-Care 01 Condition: Good Clinical Impression: Acute bronchitis Qualifiers: Bronchitis organism: unspecified organism Qualified Code(s): J20.9 - Acute bronchitis, unspecified - Discharge Information *PRESCRIPTION DRUG MONITORING PROGRAM REVIEWED*: No *COPY OF PRESCRIPTION DRUG MONITORING REPORT IN PATIENT MARLEEN: No Prescriptions: Azithromycin [Zithromax] 250 mg PO DAILY #6 tab Benzonatate [Tessalon Perle] 100 mg PO TID PRN #20 capsule PRN Reason: Cough Referrals: PCP,None [Primary Care Provider] - Forms: ED Department Discharge Additional Instructions: The following information is given to patients seen in the emergency department who are being discharged to home. This information is to outline your options for follow-up care. We provide all patients seen in our emergency department with a follow-up referral. The need for follow-up, as well as the timing and circumstances, are variable depending upon the specifics of your emergency department visit. If you don't have a primary care physician on staff, we will provide you with a referral. We always advise you to contact your personal physician following an emergency department visit to inform them of the circumstance of the visit and for follow-up with them and/or the need for any referrals to a consulting specialist. The emergency department will also refer you to a specialist when appropriate. This referral assures that you have the opportunity for follow-up care with a specialist. All of these measure are taken in an effort to provide you with optimal care, which includes your follow-up. Under all circumstances we always encourage you to contact your private physician who remains a resource for coordinating your care. When calling for follow-up care, please make the office aware that this follow-up is from your recent emergency room visit. If for any reason you are refused follow-up, please contact the [facility] Emergency Department at and asked to speak to the emergency department charge nurse. Meds as prescribed, use 20 minutes of ice at minimum for back pain and take ibuprofen, follow up with primary care, return if symptoms worsen or change. [facility] [address] [place] [id number] - My Orders Last 24 Hours: My Active Orders 08/04/18 14:13 Chest 2V [CR] Stat - Assessment/Plan Last 24 Hours: My Active Orders 08/04/18 14:13 Chest 2V [CR] Stat
--- NOTE | 2018-08-06 14:16 | CR ---
EXAM DATE: 08/04/18 PATIENT'S AGE: 33 Patient: SHARLENE BERNARDO Facility: [place], [place] Site . Site : 1985 Study: XRay Chest [id number] 2:56:38 PM Ordering Physician: Fazal Ly Final Report: INDICATION: Cough TECHNIQUE: Two view chest. No comparison studies are available. FINDINGS: Thoracolumbar scoliosis. Normal cardiac and mediastinal silhouette. Postsurgical or congenital changes of the right upper ribs. No acute airspace or interstitial process. No effusion or pneumothorax. Dictated by Stephenie Bernardo MD @ Aug 04 2018 3:34PM (Electronic Signature) Report Signed by Proxy. GURWINDER
== END 2018-08-04 15:20 | disposition home or self-care (01) ==
LOC: MW.ED 13:50
DX: S39.012A Strain of muscle, fascia and tendon of lower back, initial encounter (principal); J20.9 Acute bronchitis, unspecified; Z88.5 Allergy status to narcotic agent; F17.210 Nicotine dependence, cigarettes, uncomplicated; X50.9XXA Other and unspecified overexertion or strenuous movements or postures, initial encounter
CPT/HCPCS: 71046; 81001; 81025; 96372; 99283; J1885

== ENCOUNTER 2019-12-21 22:44 | Emergency (ER) | payer MEDICAID, OTHER ==
[2019-12-21] MEDS ORDERED: Ondansetron 4 MG Tab.DIS PO ONE (23:32)
--- NOTE | 2019-12-21 23:44 | EDM.PDOC ---
ED HPI GENERAL MEDICAL PROBLEM - General Chief Complaint: Gastrointestinal Problem Stated Complaint: VOMITING Time Seen by Provider: 12/21/19 23:30 Source of Information: Reports: Patient - History of Present Illness INITIAL COMMENTS - FREE TEXT/NARRATIVE: The patient is a 34-year-old female who presents to the ER for some nausea and vomiting. She states that for the past few days she has had a lot of coughing, audible nasal congestion, generalized myalgias and feels feverish, along with some nausea and vomiting. No shortness of breath, no abdominal pain, no other acute complaints. Middle Chest Pain Score (Numeric/FACES): 9 - Related Data Allergies Allergy/AdvReac Type Severity Reaction Status Date / Time codeine Allergy Intermediate Itching Verified 12/21/19 22:58 acetaminophen Allergy Itching Verified 12/21/19 22:58 [From Tylenol-Codeine #3] hydrocodone Allergy Itching Verified 12/21/19 22:58 Home Meds: Home Meds Ondansetron [Zofran ODT] 4 mg PO Q4H PRN 5 Days #20 tab.dis 12/21/19 [Rx] medroxyPROGESTERone Acetate [Depo-Provera] 150 mg IM 12/21/19 [History] Past Medical History - Past Health History Medical/Surgical History: Denies Medical/Surgical History HEENT History: Reports: Other (See Below) Other HEENT History: hearing loss right side Cardiovascular History: Reports: None Respiratory History: Reports: Intubation, Previous Gastrointestinal History: Reports: None Genitourinary History: Reports: None 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: , 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 Musculoskeletal History: Reports: Other (See Below) Neurological History: Reports: None Psychiatric History: Reports: Anxiety, Depression, Panic Attack, PTSD Endocrine/Metabolic History: Reports: None Hematologic History: Reports: None Immunologic History: Reports: None Oncologic (Cancer) History: Reports: None Dermatologic History: Reports: None - Infectious Disease History Infectious Disease History: Reports: Chicken Pox - Past Surgical History Head Surgeries/Procedures: Reports: None Female Surgical History: Reports: D&C Other Musculoskeletal Surgeries/Procedures:: scoliosis Social & Family History - Family History Family Medical History: Noncontributory - Tobacco Use Smoking Status *Q: Current Every Day Smoker Years of Tobacco use: 20 Packs/Tins Daily: 0.5 - Caffeine Use Caffeine Use: Reports: Coffee - Recreational Drug Use Recreational Drug Use: No ED ROS GENERAL - Review of Systems Review Of Systems: See Below (Positive for fevers, positive for cough, positive nasal congestion, positive for myalgias, positive for nausea vomiting, all other Positives and pertinent negatives as per HPI. All other pertinent systems were reviewed and are negative) ED EXAM, GI/ABD - Physical Exam Exam: See Below Text/Narrative:: Constitutional: Nontoxic, looks like she does not feel well with a harsh bronchial cough, sounds very nasally congested HEENT.: Normocephalic, Atraumatic, PERRL, EOMI, External ears are atraumatic, Oropharynx clear and moist without lesions or masses, nares are congested without epistaxis Neck: Normal range of motion, Trachea Midline, No stridor Respiratory.: No respiratory distress, No tachypnea, Lungs Clear to Auscultation bilaterally without wheezes, rales, or rhonchi, bronchial cough Cardiovascular.: Regular rate and Rhythm without murmurs, rubs, or gallops, good peripheral perfusion GI: Abdomen soft and non tender, no masses, no rebound, rigidity, or guarding Genital Urinary: Deferred Musculoskeletal: Good range of motion. All 4 extremities present and atraumatic , no edema Back: Full Range of Motion Skin: Warm, Dry, Color is ethnicity appropriate, No acute rash. Lymphatic: No lymphadenopathy noted Neurological: Alert, Awake and oriented x 3, No focal deficits noted appreciate , GCS 15 Psych: Affect, Judgement, mood normal Course - Vital Signs Text/Narrative:: History and exam are consistent with a viral syndrome. The patient will be given a dose of Zofran in the ER and some Toradol and a prescription for Zofran. Stable for discharge and conservative outpatient care. Last Recorded V/S: Last Vital Signs Temp 36.7 C 12/22/19 00:00 Pulse 79 12/22/19 00:00 Resp 18 12/22/19 00:00 BP 112/60 12/22/19 00:00 Pulse Ox 98 12/22/19 00:00 - Orders/Labs/Meds Meds: Medications Discontinued Medications Generic Name Dose Route Start Last Admin Trade Name Freq PRN Reason Stop Dose Admin Ketorolac Tromethamine 60 mg 12/21/19 23:40 12/21/19 23:49 Toradol IM 12/21/19 23:41 Not Given ONETIME ONE Ondansetron HCl 4 mg 12/21/19 23:32 12/21/19 23:46 Zofran Odt PO 12/21/19 23:33 4 mg ONETIME ONE Administration Departure - Departure Time of Disposition: 23:41 Disposition: Home, Self-Care 01 Condition: Good Clinical Impression: Viral syndrome - Discharge Information Prescriptions: Ondansetron [Zofran ODT] 4 mg PO Q4H PRN 5 Days #20 tab.dis PRN Reason: Nausea/Vomiting Instructions: Viral Illness, Adult Referrals: PCP,None [Primary Care Provider] - Forms: ED Department Discharge Additional Instructions: VIRAL SYNDROME This appears to be a viral syndrome. They are highly common and variable, causing fevers, colds, coughs, headaches, vomiting, diarrhea, etc. Antibiotics don't work on viruses, and they need to run their course. On average these last 7-10 days, depending upon the virus. There are some that even last up to several weeks. Rest, drink plenty of clear fluids, especially water. You want our urine to be clear to a light yellow. Ibuprofen 800 mg and Tylenol 1000 mg may be taken at the same time every 6 hours as needed for fevers and discomfort. Upper respiratory congestion and sore throats can be improved with cool liquids , humidifiers, cough drops with menthol, honey, tea with honey, and over-the- counter decongestants. Return to the ER if you develop difficulty breathing, or any other concerns. Care Plan Goals: The following information is given to patients seen in the emergency department who are being discharged to home. This information is to outline your options for follow-up care. We provide all patients seen in our emergency department with a follow-up referral. The need for follow-up, as well as the timing and circumstances, are variable depending upon the specifics of your emergency department visit. If you don't have a primary care physician on staff, we will provide you with a referral. We always advise you to contact your personal physician following an emergency department visit to inform them of the circumstance of the visit and for follow-up with them and/or the need for any referrals to a consulting specialist. The emergency department will also refer you to a specialist when appropriate. This referral assures that you have the opportunity for follow-up care with a specialist. All of these measure are taken in an effort to provide you with optimal care, which includes your follow-up. Under all circumstances we always encourage you to contact your private physician who remains a resource for coordinating your care. When calling for follow-up care, please make the office aware that this follow-up is from your recent emergency room visit. If for any reason you are refused follow-up, please contact the [facility] Emergency Department at and asked to speak to the emergency department charge nurse. [facility] [address] [place] [id number] [place] [address] Sepsis Event Note - Evaluation Sepsis Screening Result: No Definite Risk - Focused Exam Vital Signs: Vital Signs Temp Pulse Resp BP Pulse Ox 12/22/19 00:00 36.7 C 79 18 112/60 98 12/21/19 22:55 36.4 C 101 H 20 122/67 97 Date Exam was Performed: 12/22/19 Time Exam was Performed: 03:23
[2019-12-21] MEDS: Ketorolac 60 MG/2 ML SDV IM ONE ×2 (23:46→23:49)
[2019-12-22 00:16] VITALS: BP 112/60; PULSE 79
== END 2019-12-22 | disposition home or self-care (01) ==
LOC: MW.ED 22:44
DX: B34.9 Viral infection, unspecified (principal); F17.210 Nicotine dependence, cigarettes, uncomplicated; Z88.5 Allergy status to narcotic agent; Z88.8 Allergy status to other drugs, medicaments and biological substances
CPT/HCPCS: 99283; A9270; J1885

== ENCOUNTER 2020-03-21 08:14 | Emergency (ER) | payer MEDICAID, OTHER ==
--- NOTE | 2020-03-21 08:25 | EDM.PDOC ---
ED HPI GENERAL MEDICAL PROBLEM - General Chief Complaint: General Stated Complaint: MOUTH COMPLAINT Time Seen by Provider: 03/21/20 08:17 Source of Information: Reports: Patient History Limitations: Reports: No Limitations - History of Present Illness INITIAL COMMENTS - FREE TEXT/NARRATIVE: 34-year-old female presents with left facial and left upper jaw pain since midnight. Denies fever, chills, trauma. She thinks there is an abscess to her upper jaw. ROS: A 10-point review of systems, other than pertinent positives and negatives as stated per HPI, is otherwise negative PHYSICAL EXAM General: AOx4, GCS = 15, mild distress HEENT: dry mucous membrane, tooth #7 Neck: supple, no meningismus, no Kernig or Brudzinski Cardiac: S1S2 RRR Respiratory: CTAB, no crackles or rales, no wheezing Abdomen: Soft, nontender, no rebound or guarding, nondistended, no pulsatile mass. Back: nontender Musculoskeletal: NVI distally, no deformity Neuro: No focal deficits MEDICAL DECISION MAKING: I reviewed the patients past medical records, lab and radiographic findings. I discussed the case with family members. My differential diagnosis included: dental abscess, facial cellulitis, dental pain Onset: Today Location: Reports: Face - Related Data Allergies Allergy/AdvReac Type Severity Reaction Status Date / Time codeine Allergy Intermediate Itching Verified 12/21/19 22:58 acetaminophen Allergy Itching Verified 12/21/19 22:58 [From Tylenol-Codeine #3] hydrocodone Allergy Itching Verified 12/21/19 22:58 Home Meds: Home Meds Ondansetron [Zofran ODT] 4 mg PO Q4H PRN 5 Days #20 tab.dis 12/21/19 [Rx] medroxyPROGESTERone Acetate [Depo-Provera] 150 mg IM 12/21/19 [History] Naproxen [Naprosyn] 500 mg PO Q12HR #10 tab 03/21/20 [Rx] Penicillin V Potassium 500 mg PO Q6HR #40 tab 03/21/20 [Rx] Past Medical History - Past Health History Medical/Surgical History: Denies Medical/Surgical History HEENT History: Reports: Other (See Below) Other HEENT History: hearing loss right side Cardiovascular History: Reports: None Respiratory History: Reports: Intubation, Previous Gastrointestinal History: Reports: None Genitourinary History: Reports: None 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: , 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 Musculoskeletal History: Reports: Other (See Below) Neurological History: Reports: None Psychiatric History: Reports: Anxiety, Depression, Panic Attack, PTSD Endocrine/Metabolic History: Reports: None Hematologic History: Reports: None Immunologic History: Reports: None Oncologic (Cancer) History: Reports: None Dermatologic History: Reports: None - Infectious Disease History Infectious Disease History: Reports: Chicken Pox - Past Surgical History Head Surgeries/Procedures: Reports: None Female Surgical History: Reports: D&C Other Musculoskeletal Surgeries/Procedures:: scoliosis Social & Family History - Family History Family Medical History: Noncontributory - Caffeine Use Caffeine Use: Reports: Coffee ED ROS GENERAL - Review of Systems Review Of Systems: See Below (see dictation) ED EXAM, GENERAL - Physical Exam Exam: See Below (see dictation) Course - Re-Assessments/Exams Free Text/Narrative Re-Assessment/Exam: 03/21/20 08:23 She is stable for discharge. I performed a repeat examination and the patient has not demonstrated any new abnormal findings. Patient exhibits normal vital signs and has exhibited a normal gait. I advised the patient to return to the ER for reevaluation if symptoms worsened, and to follow up with their dentist in 5-7 days. 03/21/20 08:23 Departure - Departure Time of Disposition: 08:23 Disposition: Home, Self-Care 01 Condition: Good Clinical Impression: Facial cellulitis, Dental abscess - Discharge Information *PRESCRIPTION DRUG MONITORING PROGRAM REVIEWED*: Not Applicable *COPY OF PRESCRIPTION DRUG MONITORING REPORT IN PATIENT MARLEEN: Not Applicable Prescriptions: Penicillin V Potassium 500 mg PO Q6HR #40 tab Naproxen [Naprosyn] 500 mg PO Q12HR #10 tab Instructions: Skin Abscess, Cellulitis, Adult, Dental Abscess Referrals: PCP,None [Primary Care Provider] - Additional Instructions: The following information is given to patients seen in the emergency department who are being discharged to home. This information is to outline your options for follow-up care. We provide all patients seen in our emergency department with a follow-up referral. The need for follow-up, as well as the timing and circumstances, are variable depending upon the specifics of your emergency department visit. If you don't have a primary care physician on staff, we will provide you with a referral. We always advise you to contact your personal physician following an emergency department visit to inform them of the circumstance of the visit and for follow-up with them and/or the need for any referrals to a consulting specialist. The emergency department will also refer you to a specialist when appropriate. This referral assures that you have the opportunity for follow-up care with a specialist. All of these measure are taken in an effort to provide you with optimal care, which includes your follow-up. Under all circumstances we always encourage you to contact your private physician who remains a resource for coordinating your care. When calling for follow-up care, please make the office aware that this follow-up is from your recent emergency room visit. If for any reason you are refused follow-up, please contact the [facility] Emergency Department at and asked to speak to the emergency department charge nurse. [facility] - [facility] [address] [place] [id number] [address]
[2020-03-21 08:30] VITALS: PULSE 104
[2020-03-21 09:24] VITALS: BP 108/57
== END 2020-03-21 08:50 | disposition home or self-care (01) ==
LOC: MW.ED 08:14
DX: K04.7 Periapical abscess without sinus (principal); L03.211 Cellulitis of face; Z88.6 Allergy status to analgesic agent; Z88.5 Allergy status to narcotic agent
CPT/HCPCS: 99283

== ENCOUNTER 2020-03-22 04:38 | Emergency (ER) | payer MEDICAID, OTHER ==
[2020-03-22 04:52] VITALS: BP 112/51; PULSE 112
[2020-03-22] MEDS ORDERED: Bupivacaine 0.5% 30 ML SDV INFILT ONE (04:53)
--- NOTE | 2020-03-22 04:57 | EDM.PDOC ---
ED HPI GENERAL MEDICAL PROBLEM - General Chief Complaint: ENT Problem Stated Complaint: ORAL PAIN Time Seen by Provider: 03/22/20 04:39 Source of Information: Reports: Patient History Limitations: Reports: No Limitations - History of Present Illness INITIAL COMMENTS - FREE TEXT/NARRATIVE: 34-year-old female with past medical history of cannabis abuse, tobacco use, panic disorder presenting with dental pain. Reports several days of pain to the left upper side of her mouth. Was seen in the emergency department earlier today and was prescribed oral antibiotics but reports worsening pain since leaving the ED. Pain is now involving her maxillary sinuses and "the inside of my nose". Denies fever, chills, nausea, vomiting. mouth area Pain Score (Numeric/FACES): 10 - Related Data Allergies Allergy/AdvReac Type Severity Reaction Status Date / Time codeine Allergy Intermediate Itching Verified 03/21/20 08:28 acetaminophen Allergy Itching Verified 03/21/20 08:28 [From Tylenol-Codeine #3] hydrocodone Allergy Itching Verified 03/21/20 08:28 Home Meds: Home Meds Naproxen [Naprosyn] 500 mg PO Q12HR #14 tab 03/21/20 [Rx] Penicillin V Potassium 500 mg PO Q6HR #40 tab 03/21/20 [Rx] Past Medical History - Past Health History Medical/Surgical History: Denies Medical/Surgical History HEENT History: Reports: Other (See Below) Other HEENT History: hearing loss right side Cardiovascular History: Reports: None Respiratory History: Reports: Intubation, Previous Gastrointestinal History: Reports: None Genitourinary History: Reports: None 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: , 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 Musculoskeletal History: Reports: Other (See Below) Neurological History: Reports: None Psychiatric History: Reports: Anxiety, Depression, Panic Attack, PTSD Endocrine/Metabolic History: Reports: None Hematologic History: Reports: None Immunologic History: Reports: None Oncologic (Cancer) History: Reports: None Dermatologic History: Reports: None - Infectious Disease History Infectious Disease History: Reports: Chicken Pox - Past Surgical History Head Surgeries/Procedures: Reports: None Female Surgical History: Reports: D&C Other Musculoskeletal Surgeries/Procedures:: scoliosis Social & Family History - Family History Family Medical History: Noncontributory - Caffeine Use Caffeine Use: Reports: Coffee ED ROS ENT - Review of Systems Review Of Systems: See Below Constitutional: Denies: Fever, Chills HEENT: Reports: Dental Pain. Denies: Nosebleed, Throat Pain Respiratory: Denies: Shortness of Breath GI/Abdominal: Denies: Nausea, Vomiting ED EXAM, ENT - Physical Exam Exam: See Below Text/Narrative:: Vital signs reviewed. Nursing notes reviewed. Constitutional: Awake, alert, anxious appearing woman Head: Normocephalic, atraumatic. Eyes: EOMI, conjunctiva normal, no discharge, no scleral icterus. Ears, Nose, Throat: External ears and ears normal, moist oral mucosa. Extremely poor dentition. #8 tooth is extremely decayed, with a periapical abscess visible to the gingival mucosa. Supple neck, no pain with tracheal tug. Handling secretions well. Cardiovascular: Tachycardic 2+ radial pulse, capillary refill less than 2 seconds. Pulmonary: normal work of breathing, no accessory muscle use. Abdomen/GI: Soft, nontender, nondistended, no guarding or rigidity, no masses. Musculoskeletal: No deformities. Integumentary: Appropriate color for ethnicity, warm, dry, no pallor or jaundice , no rash. Neurologic: Alert, answering questions appropriately, normal speech, no facial droop, moving all extremities well. Psychiatric: Fidgety and anxious. Course - Vital Signs Text/Narrative:: Patient hemodynamically stable, afebrile, well-appearing, looks nontoxic. Differential diagnosis includes but is not limited to: Periapical abscess, facial cellulitis, pulpitis, etc. On arrival patient was tachycardic but she was also extremely anxious and did not tolerate a physical examination very well, with pain out of proportion to the examination. It appears that she has a periapical abscess which I offered to drain. However, after waiting for approximately 10 minutes, the patient stated that she wanted to leave immediately, did not want to wait to have incision and drainage performed. She appears competent and is hemodynamically stable and there is no evidence of an acute medical emergency. I counseled her to continue taking her prescribed antibiotics and to follow-up with a dentist. I told her that she was free to return to the emergency department any point if she changed her mind and wanted to be reevaluated. Discharged in good condition. Last Recorded V/S: Last Vital Signs Temp 36.2 C 03/22/20 04:45 Pulse 112 H 03/22/20 04:45 Resp 18 03/22/20 04:45 BP 112/51 L 03/22/20 04:45 Pulse Ox 98 03/22/20 04:45 - Orders/Labs/Meds Meds: Medications Discontinued Medications Generic Name Dose Route Start Last Admin Trade Name Timothy PRN Reason Stop Dose Admin Bupivacaine HCl 10 ml 03/22/20 04:53 Marcaine 0.5% INFILT 03/22/20 04:54 ONETIME ONE Bupivacaine HCl 10 ml 03/22/20 05:13 Sensorcaine-Mpf 0.5% INJECT 03/22/20 05:14 ONETIME ONE Bupivacaine HCl Confirm 03/22/20 05:11 Sensorcaine-Mpf 0.5% Administered 03/22/20 05:12 Dose 10 ml .ROUTE .STK-MED ONE Departure - Departure Time of Disposition: 05:24 Disposition: Home, Self-Care 01 Condition: Good Clinical Impression: Periapical abscess - Discharge Information *PRESCRIPTION DRUG MONITORING PROGRAM REVIEWED*: Not Applicable *COPY OF PRESCRIPTION DRUG MONITORING REPORT IN PATIENT MARLEEN: Not Applicable Instructions: Dental Abscess, [id number] Referrals: [facility] [Provider Group] - 1 Week (As needed.) Forms: ED Department Discharge Additional Instructions: The following information is given to patients seen in the emergency department who are being discharged to home. This information is to outline your options for follow-up care. We provide all patients seen in our emergency department with a follow-up referral. The need for follow-up, as well as the timing and circumstances, are variable depending upon the specifics of your emergency department visit. If you don't have a primary care physician on staff, we will provide you with a referral. We always advise you to contact your personal physician following an emergency department visit to inform them of the circumstance of the visit and for follow-up with them and/or the need for any referrals to a consulting specialist. The emergency department will also refer you to a specialist when appropriate. This referral assures that you have the opportunity for follow-up care with a specialist. All of these measure are taken in an effort to provide you with optimal care, which includes your follow-up. Under all circumstances we always encourage you to contact your private physician who remains a resource for coordinating your care. When calling for follow-up care, please make the office aware that this follow-up is from your recent emergency room visit. If for any reason you are refused follow-up, please contact the [facility] Emergency Department at and asked to speak to the emergency department charge nurse. If you do not have a primary care physician that is caring for you, you can contact these clinics below to set up an appointment to establish care: [facility] - Primary Care [address] [place] [id number] [facility] [address] [place] [id number] Sepsis Event Note - Evaluation Sepsis Screening Result: No Definite Risk - Focused Exam Vital Signs: Vital Signs Temp Pulse Resp BP Pulse Ox 03/22/20 04:45 36.2 C 112 H 18 112/51 L 98 Date Exam was Performed: 03/22/20 Time Exam was Performed: 05:21
[2020-03-22] MEDS ORDERED: Bupivacaine 0.5% 10 ML SDV ONE (05:11)
[2020-03-22] MEDS ORDERED: Bupivacaine 0.5% 10 ML SDV INJECT ONE (05:13)
== END 2020-03-22 05:15 | disposition home or self-care (01) ==
LOC: MW.ED 04:38
DX: K04.7 Periapical abscess without sinus (principal); K02.9 Dental caries, unspecified; Z88.5 Allergy status to narcotic agent; Z88.6 Allergy status to analgesic agent
CPT/HCPCS: 99282

== ENCOUNTER 2020-04-02 23:50 | Emergency (ER) | payer MEDICAID, OTHER ==
[2020-04-03] MEDS ORDERED: Acetaminophen 500 MG Tab PO ONE (00:08)
[2020-04-03] MEDS ORDERED: Ibuprofen 800 MG Tab PO ONE (00:08)
--- NOTE | 2020-04-03 00:19 | EDM.PDOC ---
ED HPI GENERAL MEDICAL PROBLEM - General Chief Complaint: ENT Problem Stated Complaint: RT EAR PAIN Time Seen by Provider: 04/02/20 23:54 - History of Present Illness INITIAL COMMENTS - FREE TEXT/NARRATIVE: History of present illness: [Patient presents with right ear pain she was seen 2 days ago for right ear pain and put on some multiple antibiotics clindamycin and doxycycline which she says she is been taking. Today she states the pain is sharp and nonradiating she states that her hearing is normal she is denying any fever chills nothing seems to make it better or worse. No nausea or vomiting no hearing loss she has not taken anything at all for pain at home. ] Review of systems: As per history of present illness and below otherwise all systems reviewed and negative. Past medical history: As per history of present illness and as reviewed below otherwise noncontributory. Surgical history: As per history of present illness and as reviewed below otherwise noncontributory. Social history: No reported history of drug or alcohol abuse. Family history: As per history of present illness and as reviewed below otherwise noncontributory. Physical exam: HEENT: Atraumatic, normocephalic, pupils reactive, negative for conjunctival pallor or scleral icterus, mucous membranes moist, throat clear, neck supple, nontender, trachea midline. External pinna is deformed. I am unable to visualize all of the TM but there is some discharge in the auditory canal. The visualized portion of the TM is erythematous. There is poor dental hygiene multiple caries no evidence of an acute abscess. There is no trismus absolutely no tenderness over the mastoid process. Lungs: Clear to auscultation, breath sounds equal bilaterally, chest nontender. Heart: S1S2, regular, negative for clicks, rubs, or JVD. Abdomen: Soft, nondistended, nontender. Negative for masses or hepatosplenomegaly. Negative for costovertebral tenderness. Pelvis: Stable nontender. Genitourinary: Deferred. Rectal: Deferred. Extremities: Atraumatic, negative for cords or calf pain. Neurovascular unremarkable. Neuro: Awake, alert, oriented. Cranial nerves II through XII unremarkable. Cerebellum unremarkable. Motor and sensory unremarkable throughout. Exam nonfocal. Diagnostics: [] Therapeutics: [] Impression: Right ear pain otitis media suspected with perforated eardrum. [] Plan: Patient is taking the correct antibiotics for this condition I will discharge her home with some naproxen for pain and attempt to get her the contact information for ear nose and throat in [place] [] Definitive disposition and diagnosis as appropriate pending reevaluation and review of above. right ear Pain Score (Numeric/FACES): 10 - Related Data Allergies Allergy/AdvReac Type Severity Reaction Status Date / Time codeine Allergy Intermediate Itching Verified 04/02/20 23:58 acetaminophen Allergy Itching Verified 04/02/20 23:58 [From Tylenol-Codeine #3] hydrocodone Allergy Itching Verified 04/02/20 23:58 Home Meds: Home Meds Naproxen [Naprosyn] 500 mg PO Q12HR #14 tab 03/21/20 [Rx] Penicillin V Potassium 500 mg PO Q6HR #40 tab 03/21/20 [Rx] Past Medical History - Past Health History Medical/Surgical History: Denies Medical/Surgical History HEENT History: Reports: Other (See Below) Other HEENT History: hearing loss right side Cardiovascular History: Reports: None Respiratory History: Reports: Intubation, Previous Gastrointestinal History: Reports: None Genitourinary History: Reports: None 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: , 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 Musculoskeletal History: Reports: Other (See Below) Neurological History: Reports: None Psychiatric History: Reports: Anxiety, Depression, Panic Attack, PTSD Endocrine/Metabolic History: Reports: None Insulin Pump Model and Occupational Psychologist: None Hematologic History: Reports: None Immunologic History: Reports: None Oncologic (Cancer) History: Reports: None Dermatologic History: Reports: None - Infectious Disease History Infectious Disease History: Reports: None - Past Surgical History Head Surgeries/Procedures: Reports: None Female Surgical History: Reports: D&C Other Musculoskeletal Surgeries/Procedures:: Scoliosis Social & Family History - Family History Family Medical History: Noncontributory - Tobacco Use Smoking Status *Q: Current Every Day Smoker Years of Tobacco use: 20 Packs/Tins Daily: 0.5 - Caffeine Use Caffeine Use: Reports: None - Recreational Drug Use Recreational Drug Use: No ED ROS GENERAL - Review of Systems Review Of Systems: See Below ED EXAM, GENERAL - Physical Exam Exam: See Below Course - Vital Signs Last Recorded V/S: Last Vital Signs Temp 36 C L 04/03/20 00:40 Pulse 107 H 04/03/20 00:40 Resp 18 04/03/20 00:40 BP 102/62 04/03/20 00:40 Pulse Ox 97 04/03/20 00:40 - Orders/Labs/Meds Meds: Medications Discontinued Medications Generic Name Dose Route Start Last Admin Trade Name Timothy PRN Reason Stop Dose Admin Acetaminophen 1,000 mg 04/03/20 00:08 04/03/20 00:14 Tylenol Extra Strength PO 04/03/20 00:09 1,000 mg ONETIME ONE Administration Ibuprofen 800 mg 04/03/20 00:08 04/03/20 00:14 Motrin PO 04/03/20 00:09 800 mg ONETIME ONE Administration Departure - Departure Time of Disposition: 00:14 Disposition: Home, Self-Care 01 Condition: Good Clinical Impression: Otitis media Qualifiers: Otitis media type: suppurative Laterality: right - Discharge Information *PRESCRIPTION DRUG MONITORING PROGRAM REVIEWED*: Not Applicable *COPY OF PRESCRIPTION DRUG MONITORING REPORT IN PATIENT MARLEEN: Not Applicable Instructions: Otitis Media, Adult, [id number] Referrals: PCP,None [Ordering Only Provider] - Charles Koenig MD [Ordering Only Provider] - Forms: ED Department Discharge Additional Instructions: The following information is given to patients seen in the emergency department who are being discharged to home. This information is to outline your options for follow-up care. We provide all patients seen in our emergency department with a follow-up referral. The need for follow-up, as well as the timing and circumstances, are variable depending upon the specifics of your emergency department visit. If you don't have a primary care physician on staff, we will provide you with a referral. We always advise you to contact your personal physician following an emergency department visit to inform them of the circumstance of the visit and for follow-up with them and/or the need for any referrals to a consulting specialist. The emergency department will also refer you to a specialist when appropriate. This referral assures that you have the opportunity for follow-up care with a specialist. All of these measure are taken in an effort to provide you with optimal care, which includes your follow-up. Under all circumstances we always encourage you to contact your private physician who remains a resource for coordinating your care. When calling for follow-up care, please make the office aware that this follow-up is from your recent emergency room visit. If for any reason you are refused follow-up, please contact the [facility] Emergency Department at and asked to speak to the emergency department charge nurse. [facility] [address] [place] [id number] [address] Sepsis Event Note - Evaluation Sepsis Screening Result: No Definite Risk - Focused Exam Date Exam was Performed: 04/03/20 Time Exam was Performed: 20:14
[2020-04-03 00:43] VITALS: BP 102/62; PULSE 107
== END 2020-04-03 00:40 | disposition home or self-care (01) ==
LOC: MW.ED 23:50
DX: H66.41 Suppurative otitis media, unspecified, right ear (principal); F17.210 Nicotine dependence, cigarettes, uncomplicated; Z88.5 Allergy status to narcotic agent; Z88.6 Allergy status to analgesic agent
CPT/HCPCS: 99282; A9270

== ENCOUNTER 2021-08-24 00:20 | Emergency (ER) | payer MEDICAID, OTHER ==
[2021-08-24 00:51] VITALS: BP 111/55; PULSE 98
== END 2021-08-24 02:00 | disposition left against medical advice (07) ==
LOC: MW.ED 00:20
DX: Z53.21 Procedure and treatment not carried out due to patient leaving prior to being seen by health care provider (principal)

== ENCOUNTER 2021-09-01 07:50 | Emergency (ER) | payer MEDICAID, OTHER ==
[2021-09-01] MEDS ORDERED: cefTRIAXone 500 MG in Lidocaine 1% 1 ML IM ONE (08:13)
[2021-09-01] MEDS ORDERED: Azithromycin 250 MG Tab PO STA (08:13)
--- NOTE | 2021-09-01 08:16 | EDM.PDOC ---
ED HPI GENERAL MEDICAL PROBLEM - General Chief Complaint: ENT Problem Stated Complaint: EAR/TOOTH INFECTION Time Seen by Provider: 09/01/21 07:52 Source of Information: Reports: Patient History Limitations: Reports: No Limitations - History of Present Illness INITIAL COMMENTS - FREE TEXT/NARRATIVE: 36-year-old female past medical history methamphetamine abuse presents for multi ple complaints. Patient notes that she lost a filling in her right upper back tooth about 2 weeks ago and for the last for 5 days has had pain in the area worse with food and drinking. The pain radiates into her face. Patient also notes for the last few days she has had a burning sensation with urination, increased urinary frequency with decreased urinary output. She is concerned for UTI. She also notes that her while she was away recently tested positive for gonorrhea and would like treatment and testing. Lower abdomen Pain Score (Numeric/FACES): 8 - Related Data Allergies Allergy/AdvReac Type Severity Reaction Status Date / Time codeine Allergy Intermediate Itching Verified 08/24/21 00:50 acetaminophen Allergy Itching Verified 08/24/21 00:50 [From Tylenol-Codeine #3] Fish Containing Products Allergy Airway Verified 09/01/21 08:03 Tightness hydrocodone Allergy Itching Verified 08/24/21 00:50 Home Meds: Home Meds Amoxicillin/Potassium Clav [Augmentin 875-125 Tablet] 1 each PO BID 7 Days #14 tablet 09/01/21 [Rx] Past Medical History - Past Health History Medical/Surgical History: Denies Medical/Surgical History HEENT History: Reports: Other (See Below) Other HEENT History: hearing loss right side Cardiovascular History: Reports: None Respiratory History: Reports: Intubation, Previous Gastrointestinal History: Reports: None Genitourinary History: Reports: None 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: , 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 Musculoskeletal History: Reports: Arthritis, Other (See Below) Other Musculoskeletal History: scoliosis Neurological History: Reports: None Psychiatric History: Reports: Anxiety, Depression, Panic Attack, PTSD Endocrine/Metabolic History: Reports: None Insulin Pump Model and Supervisor [employer]: None Hematologic History: Reports: None Immunologic History: Reports: None Oncologic (Cancer) History: Reports: Ovarian 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 Dermatologic History: Reports: None - Infectious Disease History Infectious Disease History: Reports: Chicken Pox, MRSA - Past Surgical History Head Surgeries/Procedures: Reports: None HEENT Surgical History: Reports: None Female Surgical History: Reports: D&C Musculoskeletal Surgical History: Reports: None Social & Family History - Family History Family Medical History: No Pertinent Family History - Tobacco Use Tobacco Use Status *Q: Current Every Day Tobacco User Years of Tobacco use: 18 Packs/Tins Daily: 0.5 - Caffeine Use Caffeine Use: Reports: Coffee, Energy Drinks, Soda, Tea - Recreational Drug Use Recreational Drug Use: Yes Drug Use in Last 12 Months: Yes Recreational Drug Type: Reports: Methamphetamine Recreational Drug Use Frequency: Not Used In Over 2 Months ED ROS GENERAL - Review of Systems Review Of Systems: Comprehensive ROS is negative, except as noted in HPI. ED EXAM, GENERAL - Physical Exam Exam: See Below Exam Limited By: No Limitations General Appearance: Alert, WD/WN, No Apparent Distress Ears: Hearing Grossly Normal Throat/Mouth: Normal Voice, No Airway Compromise, Other (Normal oropharynx, poor dentition, erythema of right upper molar gumline) Head: Atraumatic, Normocephalic Respiratory/Chest: No Respiratory Distress, Lungs Clear, Normal Breath Sounds, No Accessory Muscle Use Cardiovascular: Normal Peripheral Pulses, Regular Rate, Rhythm GI/Abdominal: Soft, Non-Tender Extremities: Normal Inspection Neurological: Alert, Normal Cognition, Normal Gait Psychiatric: Normal Affect, Normal Mood Skin Exam: Warm, Dry, Intact, Normal Color Course - Vital Signs Last Recorded V/S: Last Vital Signs Temp 97.9 F 09/01/21 08:04 Pulse 83 09/01/21 08:04 Resp 15 09/01/21 08:04 BP 100/45 L 09/01/21 08:04 Pulse Ox 98 09/01/21 08:04 - Orders/Labs/Meds Orders: Active Orders 24 hr Category Date Time Status CHLAMYDIA AND GONORRHEA BY TMA Stat Lab 09/01/21 08:13 Ordered HCG QUALITATIVE,URINE [URCHEM] Stat Lab 09/01/21 08:10 Ordered UA W/LELA RFLX IF INDICATED [URIN] Stat Lab 09/01/21 08:10 Ordered Meds: Medications Discontinued Medications Generic Name Dose Route Start Last Admin Trade Name Freq PRN Reason Stop Dose Admin Azithromycin 1,000 mg 09/01/21 08:13 Azithromycin 250 Mg Tab PO 09/01/21 08:14 STAT STA Ceftriaxone Sodium 500 mg/ 1 mls @ 1 mls/sec 09/01/21 08:13 Lidocaine HCl IM 09/01/21 08:14 ONETIME ONE - Re-Assessments/Exams Free Text/Narrative Re-Assessment/Exam: 09/01/21 08:15 Anticipate discharge on Augmentin for oral infection. This will cover for UTI as well, however, will send UA to check for UTI. Will check urine for gonorrhea chlamydia but will treat regardless. Departure - Departure Time of Disposition: 08:17 Disposition: Home, Self-Care 01 Condition: Good Clinical Impression: Dental infection, STI (sexually transmitted infection) - Discharge Information Instructions: Dental Pain Referrals: PCP,None [Primary Care Provider] - Forms: ED Department Discharge Additional Instructions: You were seen in the emergency department for mouth pain, urinary symptoms, concern for sexually transmitted infection. Your lab results for the STI check are pending, however, you were treated with a shot and a pill which covers for gonorrhea and chlamydia. You were sent home with antibiotics to [facility] which will cover for dental infection as well as urinary tract infection. Please follow-up with a dentist for definitive care. The following information is given to patients seen in the emergency department who are being discharged to home. This information is to outline your options for follow-up care. We provide all patients seen in our emergency department with a follow-up referral. The need for follow-up, as well as the timing and circumstances, are variable depending upon the specifics of your emergency department visit. If you don't have a primary care physician on staff, we will provide you with a referral. We always advise you to contact your personal physician following an emergency department visit to inform them of the circumstance of the visit and for follow-up with them and/or the need for any referrals to a consulting specialist. The emergency department will also refer you to a specialist when appropriate. This referral assures that you have the opportunity for follow-up care with a specialist. All of these measure are taken in an effort to provide you with optimal care, which includes your follow-up. Under all circumstances we always encourage you to contact your private physician who remains a resource for coordinating your care. When calling for follow-up care, please make the office aware that this follow-up is from your recent emergency room visit. If for any reason you are refused follow-up, please contact the [facility] Emergency Department at and asked to speak to the emergency department charge nurse. Please follow up with your primary care physician. If you do not have a primary care physician, see below: [facility] [address], [place] [id number] [facility] [address] [place] [address] [facility] [address] [place] [address] Sepsis Event Note (ED) - Evaluation Sepsis Screening Result: No Definite Risk - Focused Exam Vital Signs: Vital Signs Temp Pulse Resp BP Pulse Ox 09/01/21 08:04 97.9 F 83 15 100/45 L 98 - My Orders Last 24 Hours: My Active Orders 09/01/21 08:10 HCG QUALITATIVE,URINE [URCHEM] Stat UA W/LELA RFLX IF INDICATED [URIN] Stat 09/01/21 08:13 CHLAMYDIA AND GONORRHEA BY TMA Stat - Assessment/Plan Last 24 Hours: My Active Orders 09/01/21 08:10 HCG QUALITATIVE,URINE [URCHEM] Stat UA W/LELA RFLX IF INDICATED [URIN] Stat 09/01/21 08:13 CHLAMYDIA AND GONORRHEA BY TMA Stat
[2021-09-01 08:54] VITALS: BP 97/56; PULSE 88
[2021-09-03 11:07] LABS: C.TRACHOMATIS BY TMA Negative (Negative); N.GONORRHOEAE BY TMA Negative (Negative)
== END 2021-09-01 08:56 | disposition home or self-care (01) ==
LOC: MW.ED 07:50
DX: K04.7 Periapical abscess without sinus (principal); A64 Unspecified sexually transmitted disease; Z88.5 Allergy status to narcotic agent; Z72.0 Tobacco use
CPT/HCPCS: 81001; 81025; 87491; 87591; 96372; 99284; A9270; J0696

== ENCOUNTER 2021-11-18 01:53 | Emergency (ER) | payer MEDICAID, OTHER ==
[2021-11-18] MEDS: fentaNYL 50 MCG/ML SDV IM ONE ×2 (02:59→03:23)
[2021-11-18] MEDS ORDERED: fentaNYL 100 MCG/2 ML SDV IM STA (03:08)
[2021-11-18] MEDS ORDERED: Sodium Chloride 0.9% 1,000 ML IV STA ×2 (04:22→04:45)
[2021-11-18] MEDS ORDERED: fentaNYL 50 MCG/ML SDV ONE (05:17)
[2021-11-18] MEDS ORDERED: fentaNYL 50 MCG/ML SDV IVPUSH ONE (05:19)
[2021-11-18 06:18] VITALS: BP 104/68; PULSE 86
== END 2021-11-18 06:18 | disposition home or self-care (01) ==
LOC: MW.ED 01:53
DX: S42.332A Displaced oblique fracture of shaft of humerus, left arm, initial encounter for closed fracture (principal); S52.512A Displaced fracture of left radial styloid process, initial encounter for closed fracture; S52.612A Displaced fracture of left ulna styloid process, initial encounter for closed fracture; Z88.5 Allergy status to narcotic agent; Z91.013 Allergy to seafood; Z88.8 Allergy status to other drugs, medicaments and biological substances; W11.XXXA Fall on and from ladder, initial encounter
CPT/HCPCS: 25605; 73030; 73060; 73090; 73110; 99283; J3010; J7030

== ENCOUNTER 2021-12-01 13:19 | Emergency (ER) | payer OTHER ==
[2021-12-01 14:03] VITALS: BP 101/53; PULSE 94
== END 2021-12-01 14:03 | disposition home or self-care (01) ==
LOC: MW.ED 13:19
DX: Z02.89 Encounter for other administrative examinations (principal); Z88.5 Allergy status to narcotic agent; Z91.013 Allergy to seafood; Z88.8 Allergy status to other drugs, medicaments and biological substances
CPT/HCPCS: 99283

== ENCOUNTER 2022-03-03 04:30 | Emergency (ER) | payer BC, MEDICAID ==
[2022-03-03 04:43] VITALS: BP 112/72; PULSE 99
== END 2022-03-03 04:45 ==
LOC: MW.ED 04:30
DX: Z02.89 Encounter for other administrative examinations (principal); Z88.5 Allergy status to narcotic agent; Z91.013 Allergy to seafood; Z88.8 Allergy status to other drugs, medicaments and biological substances
CPT/HCPCS: 99283

== ENCOUNTER 2022-04-05 23:05 | Emergency (ER) | payer BC, OTHER ==
[2022-04-06] MEDS ORDERED: Cephalexin 500 MG Cap PO ONE (00:16)
[2022-04-06] MEDS ORDERED: Ibuprofen 600 MG Tab PO ONE (00:16)
[2022-04-06 00:25] VITALS: BP 109/59; PULSE 90
== END 2022-04-06 00:32 | disposition home or self-care (01) ==
LOC: MW.ED 23:05
DX: K04.7 Periapical abscess without sinus (principal); J30.9 Allergic rhinitis, unspecified; K05.30 Chronic periodontitis, unspecified; Z88.5 Allergy status to narcotic agent; Z88.6 Allergy status to analgesic agent; Z91.013 Allergy to seafood; Z72.0 Tobacco use
CPT/HCPCS: 99282; A9270

== ENCOUNTER 2022-05-23 01:39 | Emergency (ER) | payer MEDICAID, OTHER ==
[2022-05-23] MEDS ORDERED: Azithromycin 250 MG Tab PO STA (01:54)
[2022-05-23] MEDS ORDERED: cefTRIAXone 500 MG in Lidocaine 1% 1 ML IM ONE (01:54)
[2022-05-23 01:55] VITALS: BP 118/64; PULSE 122
[2022-05-23 03:48] LABS: C. TRACHOMATIS BY PCR NOT DETECTED; N. GONORRHOEAE BY PCR NOT DETECTED
== END 2022-05-23 02:43 | disposition left against medical advice (07) ==
LOC: MW.ED 01:39
DX: N30.00 Acute cystitis without hematuria (principal); A59.01 Trichomonal vulvovaginitis; Z88.5 Allergy status to narcotic agent; Z88.6 Allergy status to analgesic agent; Z91.013 Allergy to seafood; Z79.899 Other long term (current) drug therapy
CPT/HCPCS: 81001; 81025; 87480; 87491; 87510; 87591; 87660; 96372; 99283; A9270; J0696

== ENCOUNTER 2022-06-08 07:25 | Emergency (ER) | payer MEDICAID ==
[2022-06-08 08:43] LABS: CARBON DIOXIDE,CO2 26.6 mmol/L (21.0-32.0); POTASSIUM,K 3.5 mmol/L (3.5-5.1)
[2022-06-08 08:59] VITALS: BP 118/63; PULSE 94
[2022-06-08] MEDS: Levofloxacin 750 MG Tab PO STA (09:20)
[2022-06-08] MEDS: Acetaminophen/oxyCODONE 325-10 MG Tab PO ONE (09:20)
[2022-06-08] MEDS: ceFAZolin 1 GM in Premix Bag 1 BAG IV STA (09:20)
[2022-06-08] MEDS: Ondansetron 4 MG/2 ML SDV IVPUSH ONE (09:20)
== END 2022-06-08 09:51 | disposition home or self-care (01) ==
LOC: MW.ED 07:25
DX: L03.115 Cellulitis of right lower limb (principal); L03.116 Cellulitis of left lower limb; L52 Erythema nodosum; F17.210 Nicotine dependence, cigarettes, uncomplicated; Z88.5 Allergy status to narcotic agent; Z91.013 Allergy to seafood; Z88.8 Allergy status to other drugs, medicaments and biological substances; Z20.822 Contact with and (suspected) exposure to COVID-19
CPT/HCPCS: 36415; 71045; 80053; 81003; 83605; 84703; 85025; 85610; 85730; 86140; 87040; 87635; 87651; 96365; 96375; 99283; A9270; J0690; J2405; U0002

== ENCOUNTER 2023-01-28 21:30 | Emergency (ER) | payer MEDICAID ==
[2023-01-28 22:03] VITALS: BP 109/67; PULSE 101
[2023-01-28] MEDS ORDERED: Azithromycin 250 MG Tab PO STA (22:14)
[2023-01-28] MEDS ORDERED: cefTRIAXone 500 MG in Lidocaine 1% 1 ML IM ONE (22:14)
[2023-01-28 23:52] LABS: C. TRACHOMATIS BY PCR NOT DETECTED; N. GONORRHOEAE BY PCR NOT DETECTED
== END 2023-01-28 23:25 | disposition home or self-care (01) ==
LOC: MW.ED 21:30
DX: N39.0 Urinary tract infection, site not specified (principal); Z88.5 Allergy status to narcotic agent; Z88.8 Allergy status to other drugs, medicaments and biological substances; Z91.013 Allergy to seafood; Z72.0 Tobacco use
CPT/HCPCS: 81001; 81025; 87480; 87491; 87510; 87591; 87660; 96372; 99283; A9270; J0696; J3490

== ENCOUNTER 2023-02-03 19:41 | Emergency (ER) | payer MEDICAID ==
[2023-02-03] MEDS ORDERED: Amoxicillin/Clavulanate K 875-125 MG Tab PO STA (21:43)
[2023-02-03] MEDS ORDERED: Sulfamethoxazole/Trimethoprim 800-160 MG Tab PO STA (21:44)
[2023-02-03 23:41] VITALS: BP 130/71; PULSE 88
== END 2023-02-03 22:00 | disposition home or self-care (01) ==
LOC: MW.ED 19:41
DX: K04.7 Periapical abscess without sinus (principal); Z88.5 Allergy status to narcotic agent; Z91.013 Allergy to seafood
CPT/HCPCS: 99282; A9270

== ENCOUNTER 2023-02-21 13:53 | Emergency (ER) | payer MEDICAID ==
[2023-02-21 14:46] VITALS: BP 113/63; PULSE 103
[2023-02-21 18:08] LABS: C. TRACHOMATIS BY PCR NOT DETECTED; N. GONORRHOEAE BY PCR NOT DETECTED
== END 2023-02-21 18:15 | disposition home or self-care (01) ==
LOC: MW.ED 13:53
DX: N76.0 Acute vaginitis (principal); B96.89 Other specified bacterial agents as the cause of diseases classified elsewhere; K04.7 Periapical abscess without sinus; K02.9 Dental caries, unspecified; Z88.5 Allergy status to narcotic agent; Z88.8 Allergy status to other drugs, medicaments and biological substances
CPT/HCPCS: 81001; 81025; 87480; 87491; 87510; 87591; 87660; 99283

== ENCOUNTER 2023-03-20 00:25 | Emergency (ER) | payer MEDICAID ==
[2023-03-20 00:37] VITALS: BP 113/54; PULSE 107
[2023-03-20] MEDS ORDERED: Nystatin Susp 100,000 Unit/ML 5 ML UD Cup PO ONE (01:24)
[2023-03-20 01:37] LABS: APPEARANCE,URINE CLEAR; BILIRUBIN,URINE NEGATIVE (NEGATIVE); COLOR,URINE YELLOW; GLUCOSE,URINE NEGATIVE (NEGATIVE); KETONES,URINE NEGATIVE (NEGATIVE); LEUKOCYTE ESTERASE,URINE NEGATIVE (NEGATIVE); NITRITE,URINE NEGATIVE (NEGATIVE); OCCULT BLOOD,URINE NEGATIVE (NEGATIVE); PROTEIN,URINE NEGATIVE (NEGATIVE); UROBILINOGEN,URINE 0.2 EU/dL (<2.0)
== END 2023-03-20 02:53 | disposition home or self-care (01) ==
LOC: MW.ED 00:25
DX: B37.0 Candidal stomatitis (principal); B37.81 Candidal esophagitis; Z88.5 Allergy status to narcotic agent; Z91.013 Allergy to seafood
CPT/HCPCS: 81003; 99283; A9270

== ENCOUNTER 2023-04-08 14:49 | Emergency (ER) | payer MEDICAID ==
[2023-04-08] MEDS ORDERED: Benzocaine 20% Topical Spray UD MUCMEM ONE (15:48)
[2023-04-08] MEDS ORDERED: Amoxicillin/Clavulanate K 875-125 MG Tab PO ONE (15:49)
[2023-04-08 16:15] VITALS: BP 103/56; PULSE 110
== END 2023-04-08 16:17 | disposition home or self-care (01) ==
LOC: MW.ED 14:49
DX: K04.7 Periapical abscess without sinus (principal); Z79.899 Other long term (current) drug therapy; Z88.5 Allergy status to narcotic agent; Z88.8 Allergy status to other drugs, medicaments and biological substances
CPT/HCPCS: 41800; 99282; A9270

== ENCOUNTER 2023-08-24 12:05 | Emergency (ER) | payer MEDICAID ==
[2023-08-24] MEDS ORDERED: Meclizine 25 MG Tab PO STA (12:36)
[2023-08-24 12:40] VITALS: BP 133/74; PULSE 105
[2023-08-24 13:17] LABS: CORONAVIRUS COVID-19 NAA POSITIVE (NEGATIVE); INFLUENZA A NAA NEGATIVE (NEGATIVE); INFLUENZA B NAA NEGATIVE (NEGATIVE)
== END 2023-08-24 13:53 | disposition home or self-care (01) ==
LOC: MW.ED 12:05
DX: U07.1 COVID-19 (principal); J32.9 Chronic sinusitis, unspecified; B96.89 Other specified bacterial agents as the cause of diseases classified elsewhere; Z88.5 Allergy status to narcotic agent; Z91.013 Allergy to seafood
CPT/HCPCS: 0240U; 87651; 99284; A9270; 99283

== ENCOUNTER 2023-08-27 20:50 | Emergency (ER) | payer MEDICAID ==
[2023-08-27] MEDS ORDERED: Meclizine 25 MG Tab PO ONE (21:36)
[2023-08-27] MEDS ORDERED: Sodium Chloride 0.9% 1,000 ML IV ONE (21:36)
[2023-08-27 21:59] LABS: BASOPHILS ABSOLUTE AUTO 0.02 K/uL (0.00-0.20); BASOPHILS PERCENT AUTO 0.5 % (0.0-1.0); EOSINOPHILS ABSOLUTE AUTO 0.14 K/uL (0.00-0.45); EOSINOPHILS PERCENT AUTO 3.4 % (0.0-6.0); HEMATOCRIT 44.5 % (37.0-47.0); IMMATURE GRAN ABSOLUTE AUTO 0.01 K/uL (0.00-0.05); IMMATURE GRAN PERCENT AUTO 0.2 % (0.0-0.4); LYMPHOCYTES ABSOLUTE AUTO 1.61 K/uL (1.00-4.80); LYMPHOCYTES PERCENT AUTO 39.4 % (24.0-44.0); MEAN CORPUSCULAR HEMOGLOBIN 30.1 pg (28.0-32.0); MEAN CORPUSCULAR HGB CONC 33.7 g/dL (32.0-36.0); MEAN CORPUSCULAR VOLUME 89.2 fL (83.0-99.0); MEAN PLATELET VOLUME 9.1 fL (9.4-12.3); MONOCYTES PERCENT AUTO 12.2 % (0.0-8.0); NEUTROPHILS ABSOLUTE AUTO 1.81 K/uL (1.80-7.70); NEUTROPHILS PERCENT AUTO 44.3 % (41.0-71.0); PLATELET COUNT,PLT 249 K/uL (150-400); RED BLOOD CELL COUNT 4.99 M/uL (4.10-5.30); WHITE BLOOD CELL COUNT,WBC 4.09 K/uL (3.9-11.3)
[2023-08-27 22:30] LABS: A/G RATIO 0.8 (0.9-1.6); ALANINE AMINOTRANSFERASE,ALT 71 IU/L (14-63); ALBUMIN 3.6 g/dL (3.4-5.0); ALKALINE PHOSPHATASE 68 U/L (46-116); ASPARTATE AMNIOTRANSFERASE,AST 28 IU/L (15-37); BILIRUBIN TOTAL 0.4 mg/dL (0.2-1.0); BLOOD UREA NITROGEN,BUN 9 mg/dL (7.0-18.0); CALCIUM 8.5 mg/dL (8.5-10.1); CARBON DIOXIDE,CO2 26.8 mmol/L (21.0-32.0); CHLORIDE,CL 101 mmol/L (98-107); CREATININE 0.8 mg/dL (0.6-1.0); EST CRCL DRUG DOSING (CG) 81.53 mL/min; ESTIMATED GFR 96 mL/min (>60); GLUCOSE RANDOM 96 mg/dL (74-106); POTASSIUM,K 3.7 mmol/L (3.5-5.1); PROTEIN TOTAL,TP 8.2 g/dL (6.4-8.2); SODIUM,NA 137 mmol/L (136-145)
[2023-08-27 22:41] LABS: APPEARANCE,URINE CLEAR; BILIRUBIN,URINE NEGATIVE (NEGATIVE); COLOR,URINE YELLOW; GLUCOSE,URINE NEGATIVE (NEGATIVE); KETONES,URINE NEGATIVE (NEGATIVE); LEUKOCYTE ESTERASE,URINE NEGATIVE (NEGATIVE); NITRITE,URINE NEGATIVE (NEGATIVE); OCCULT BLOOD,URINE NEGATIVE (NEGATIVE); PROTEIN,URINE NEGATIVE (NEGATIVE); UROBILINOGEN,URINE 0.2 EU/dL (<2.0)
[2023-08-27 22:51] LABS: AMPHETAMINES SCREEN, URINE PRESUMPTIVE POSITIVE (CUTOFF=500); BARBITURATE SCREEN,URINE NEGATIVE (CUTOFF=200); BENZODIAZEPINES SCREEN,URINE NEGATIVE (CUTOFF=150); BUPRENORPHINE SCREEN,URINE NEGATIVE (CUTOFF=10); METHADONE SCREEN, URINE NEGATIVE (CUTOFF=200); METHAMPHETAMINES SCREEN, URINE PRESUMPTIVE POSITIVE (CUTOFF=500); OXYCODONE SCREEN,URINE NEGATIVE (CUT0FF=100); PCP SCREEN,URINE NEGATIVE (CUTOFF=25); PROPOXYPHENE SCREEN,URINE NEGATIVE (CUTOFF=300); THC SCREEN,URINE 20 NG/ML NEGATIVE (CUTOFF=50)
[2023-08-27 23:19] VITALS: BP 113/74; PULSE 89
== END 2023-08-27 23:18 | disposition home or self-care (01) ==
LOC: MW.ED 20:50
DX: U07.1 COVID-19 (principal); Z88.5 Allergy status to narcotic agent; Z91.013 Allergy to seafood
CPT/HCPCS: 36415; 71046; 80053; 80305; 81003; 81025; 84484; 85025; 85379; 93005; 96360; 99285; A9270; J7030; 93010; 99283

== ENCOUNTER 2023-10-12 09:57 | Emergency (ER) | payer MEDICAID ==
[2023-10-12 10:32] VITALS: BP 113/64; PULSE 96
[2023-10-12 10:36] LABS: APPEARANCE,URINE SLT CLOUDY; BILIRUBIN,URINE NEGATIVE (NEGATIVE); COLOR,URINE YELLOW; GLUCOSE,URINE NEGATIVE (NEGATIVE); KETONES,URINE TRACE mg/dL (NEGATIVE); LEUKOCYTE ESTERASE,URINE NEGATIVE (NEGATIVE); NITRITE,URINE NEGATIVE (NEGATIVE); OCCULT BLOOD,URINE SMALL (NEGATIVE); PROTEIN,URINE NEGATIVE (NEGATIVE); UROBILINOGEN,URINE 0.2 EU/dL (<2.0)
[2023-10-12 10:47] LABS: BACTERIA,URINE 1+ (NEGATIVE); CALCIUM OXALATE CRYSTALS,URINE FEW (NEGATIVE); EPITHELIAL CELLS,URINE FEW (NONE-FEW); RBC,URINE 0-2 (0-2/HPF)
[2023-10-12 10:48] LABS: MUCUS,URINE LIGHT (NONE-MOD)
[2023-10-12 11:50] LABS: CORONAVIRUS COVID-19 NAA NEGATIVE (NEGATIVE); INFLUENZA A NAA NEGATIVE (NEGATIVE); INFLUENZA B NAA NEGATIVE (NEGATIVE); RESPIRATORY SYNCYTIAL VIR NAA NEGATIVE (NEGATIVE)
== END 2023-10-12 11:27 | disposition home or self-care (01) ==
LOC: MW.ED 09:57
DX: K04.7 Periapical abscess without sinus (principal); J32.9 Chronic sinusitis, unspecified; Z88.5 Allergy status to narcotic agent; Z88.6 Allergy status to analgesic agent; Z91.013 Allergy to seafood
CPT/HCPCS: 0241U; 81001; 81025; 99283

== ENCOUNTER 2023-10-30 06:10 | Emergency (ER) | payer MEDICAID ==
[2023-10-30 06:22] VITALS: BP 121/53; PULSE 107
== END 2023-10-30 06:34 | disposition left against medical advice (07) ==
LOC: MW.ED 06:10
DX: B34.9 Viral infection, unspecified (principal); Z88.5 Allergy status to narcotic agent; Z88.8 Allergy status to other drugs, medicaments and biological substances
CPT/HCPCS: 99283

== ENCOUNTER 2024-02-11 02:40 | Emergency (ER) | payer MEDICAID ==
[2024-02-11 04:15] VITALS: BP 103/60; PULSE 94
== END 2024-02-11 04:14 | disposition home or self-care (01) ==
LOC: MW.ED 02:40
DX: L03.211 Cellulitis of face (principal); R09.82 Postnasal drip; Z88.5 Allergy status to narcotic agent; Z88.6 Allergy status to analgesic agent; Z91.013 Allergy to seafood; Z79.899 Other long term (current) drug therapy
CPT/HCPCS: 71046; 71046-26; 99283

== ENCOUNTER 2024-03-20 15:36 | Emergency (ER) | payer MEDICAID ==
[2024-03-20] MEDS: Sodium Chloride 0.9% 1,000 ML IV ONE (16:49)
[2024-03-20] MEDS: Sodium Chloride 0.9% 10 ML Syringe FLUSH PRN (16:49)
[2024-03-20] MEDS: Sodium Chloride 0.9% 2.5 ML Syringe FLUSH PRN (16:49)
[2024-03-20 17:14] LABS: BASOPHILS ABSOLUTE AUTO 0.03 K/uL (0.00-0.20); BASOPHILS PERCENT AUTO 0.5 % (0.0-1.0); EOSINOPHILS ABSOLUTE AUTO 0.21 K/uL (0.00-0.45); EOSINOPHILS PERCENT AUTO 3.5 % (0.0-6.0); HEMATOCRIT 41.9 % (37.0-47.0); HEMOGLOBIN 13.8 g/dL (12.0-16.0); IMMATURE GRAN ABSOLUTE AUTO 0.01 K/uL (0.00-0.05); IMMATURE GRAN PERCENT AUTO 0.2 % (0.0-0.4); LYMPHOCYTES ABSOLUTE AUTO 1.27 K/uL (1.00-4.80); MEAN CORPUSCULAR HEMOGLOBIN 30.3 pg (28.0-32.0); MEAN CORPUSCULAR HGB CONC 32.9 g/dL (32.0-36.0); MEAN CORPUSCULAR VOLUME 92.1 fL (83.0-99.0); MEAN PLATELET VOLUME 9.1 fL (9.4-12.3); MONOCYTES ABSOLUTE AUTO 0.49 K/uL (0.00-0.80); MONOCYTES PERCENT AUTO 8.1 % (0.0-8.0); NEUTROPHILS ABSOLUTE AUTO 4.03 K/uL (1.80-7.70); NEUTROPHILS PERCENT AUTO 66.7 % (41.0-71.0); PLATELET COUNT,PLT 259 K/uL (150-400); RED BLOOD CELL COUNT 4.55 M/uL (4.10-5.30); WHITE BLOOD CELL COUNT,WBC 6.04 K/uL (3.9-11.3)
[2024-03-20 17:48] LABS: A/G RATIO 0.7 (0.9-1.6); ALBUMIN 3.3 g/dL (3.4-5.0); BILIRUBIN TOTAL 1.9 mg/dL (0.2-1.0); CALCIUM 8.3 mg/dL (8.5-10.1); CARBON DIOXIDE,CO2 27.8 mmol/L (21.0-32.0); CREATININE 0.8 mg/dL (0.6-1.0); EST CRCL DRUG DOSING (CG) 81.53 mL/min; POTASSIUM,K 3.6 mmol/L (3.5-5.1); PROTEIN TOTAL,TP 7.9 g/dL (6.4-8.2)
[2024-03-20 17:51] LABS: LACTIC ACID 0.7 mmol/L (0.4-2.0)
[2024-03-20] MEDS: Iopamidol 755 MG/ML 500 ML Multipack Bottle IVPUSH STA (18:20)
[2024-03-20 19:46] LABS: APPEARANCE,URINE CLEAR; BILIRUBIN,URINE NEGATIVE (NEGATIVE); COLOR,URINE YELLOW; GLUCOSE,URINE NEGATIVE (NEGATIVE); KETONES,URINE NEGATIVE (NEGATIVE); LEUKOCYTE ESTERASE,URINE NEGATIVE (NEGATIVE); NITRITE,URINE POSITIVE (NEGATIVE); OCCULT BLOOD,URINE NEGATIVE (NEGATIVE); PH,URINE 5.5 (5.0-8.0); PROTEIN,URINE NEGATIVE (NEGATIVE); UROBILINOGEN,URINE 0.2 EU/dL (<2.0)
[2024-03-20] MEDS: Ketorolac 30 MG/ML SDV IVPUSH ONE (19:58)
[2024-03-20 20:04] LABS: RBC,URINE 0-2 (0-2/HPF)
[2024-03-20 20:05] LABS: BACTERIA,URINE 1+ (NEGATIVE); EPITHELIAL CELLS,URINE NOT SEEN (NONE-FEW); WBC,URINE 0-2 (0-5/HPF)
[2024-03-20 20:12] VITALS: BP 113/83; PULSE 98
== END 2024-03-20 20:19 | disposition home or self-care (01) ==
LOC: MW.ED 15:36
DX: S46.211A Strain of muscle, fascia and tendon of other parts of biceps, right arm, initial encounter (principal); N39.0 Urinary tract infection, site not specified; F17.210 Nicotine dependence, cigarettes, uncomplicated; Z79.899 Other long term (current) drug therapy; Z88.5 Allergy status to narcotic agent; Z88.6 Allergy status to analgesic agent; Z88.8 Allergy status to other drugs, medicaments and biological substances; Z91.013 Allergy to seafood; Z75.8 Other problems related to medical facilities and other health care; X50.9XXA Other and unspecified overexertion or strenuous movements or postures, initial encounter
CPT/HCPCS: 36415; 70491; 73201; 80053; 81001; 81003; 83605; 85025; 87040; 87086; 87088; 87186; 96361; 96374; 99284; J1885; J3490; J7030; Q9967

== ENCOUNTER 2024-04-13 19:04 | Emergency (ER) | payer MEDICAID ==
[2024-04-13 19:12] VITALS: BP 127/77; PULSE 118
[2024-04-13] MEDS ORDERED: Sodium Chloride 0.9% 1,000 ML IV ONE (19:22)
[2024-04-13] MEDS ORDERED: Ketorolac 30 MG/ML SDV IVPUSH ONE (19:22)
== END 2024-04-13 19:42 | disposition left against medical advice (07) ==
LOC: MW.ED 19:04
DX: R00.0 Tachycardia, unspecified (principal); F17.210 Nicotine dependence, cigarettes, uncomplicated; Z91.013 Allergy to seafood; Z88.8 Allergy status to other drugs, medicaments and biological substances; Z86.16 Personal history of COVID-19; Z75.8 Other problems related to medical facilities and other health care
CPT/HCPCS: 71045; 71045-26; 93010; 99284; 99285

== ENCOUNTER 2024-09-17 14:58 | Emergency (ER) | payer MEDICAID ==
[2024-09-17 15:47] LABS: BASOPHILS ABSOLUTE AUTO 0.03 K/uL (0.00-0.20); BASOPHILS PERCENT AUTO 0.5 % (0.0-1.0); EOSINOPHILS ABSOLUTE AUTO 0.33 K/uL (0.00-0.45); EOSINOPHILS PERCENT AUTO 5.8 % (0.0-6.0); HEMOGLOBIN 15.2 g/dL (12.0-16.0); LYMPHOCYTES PERCENT AUTO 24.6 % (24.0-44.0); MEAN CORPUSCULAR HEMOGLOBIN 29.6 pg (28.0-32.0); MEAN CORPUSCULAR VOLUME 89.5 fL (83.0-99.0); MEAN PLATELET VOLUME 9.3 fL (9.4-12.3); MONOCYTES ABSOLUTE AUTO 0.65 K/uL (0.00-0.80); MONOCYTES PERCENT AUTO 11.4 % (0.0-8.0); NEUTROPHILS ABSOLUTE AUTO 3.27 K/uL (1.80-7.70); NEUTROPHILS PERCENT AUTO 57.7 % (41.0-71.0); PLATELET COUNT,PLT 269 K/uL (150-400); RED BLOOD CELL COUNT 5.14 M/uL (4.10-5.30); WHITE BLOOD CELL COUNT,WBC 5.68 K/uL (3.9-11.3)
[2024-09-17 16:10] LABS: BILIRUBIN,URINE NEGATIVE (NEGATIVE); COLOR,URINE YELLOW; GLUCOSE,URINE NEGATIVE (NEGATIVE); KETONES,URINE NEGATIVE (NEGATIVE); LEUKOCYTE ESTERASE,URINE NEGATIVE (NEGATIVE); NITRITE,URINE NEGATIVE (NEGATIVE); OCCULT BLOOD,URINE NEGATIVE (NEGATIVE); PROTEIN,URINE NEGATIVE (NEGATIVE); UROBILINOGEN,URINE 0.2 EU/dL (<2.0)
[2024-09-17 16:11] LABS: A/G RATIO 0.9 (0.9-1.6); ALBUMIN 3.9 g/dL (3.4-5.0); BILIRUBIN TOTAL 1.5 mg/dL (0.2-1.0); CALCIUM 9.1 mg/dL (8.5-10.1); CARBON DIOXIDE,CO2 28.6 mmol/L (21.0-32.0); CREATININE 0.8 mg/dL (0.6-1.0); EST CRCL DRUG DOSING (CG) 80.72 mL/min; POTASSIUM,K 3.8 mmol/L (3.5-5.1); PROTEIN TOTAL,TP 8.3 g/dL (6.4-8.2)
[2024-09-17 16:12] LABS: APPEARANCE,URINE HAZY
[2024-09-17 16:16] LABS: LACTIC ACID 1.1 mmol/L (0.4-2.0)
[2024-09-17 17:24] VITALS: BP 127/80; PULSE 95
== END 2024-09-17 17:23 | disposition home or self-care (01) ==
LOC: MW.ED 14:58
DX: R06.02 Shortness of breath (principal); R05.9 Cough, unspecified; R30.0 Dysuria; E03.9 Hypothyroidism, unspecified; Z86.16 Personal history of COVID-19; Z79.890 Hormone replacement therapy; Z75.8 Other problems related to medical facilities and other health care; Z88.6 Allergy status to analgesic agent; Z88.5 Allergy status to narcotic agent; Z91.013 Allergy to seafood
CPT/HCPCS: 36415; 71046; 71046-26; 80053; 81003; 83605; 85025; 99284

== ENCOUNTER 2025-02-24 08:47 | Emergency (ER) | payer MEDICAID ==
[2025-02-24] MEDS ORDERED: Sodium Chloride 0.9% 2.5 ML Syringe FLUSH PRN (09:55)
[2025-02-24] MEDS ORDERED: Sodium Chloride 0.9% 20 ML SDV IV PRN (09:55)
[2025-02-24] MEDS ORDERED: Sodium Chloride 0.9% 10 ML Syringe FLUSH PRN (09:55)
[2025-02-24] MEDS: Sodium Chloride 0.9% 1,000 ML IV ONE (10:05)
[2025-02-24 10:43] LABS: BASOPHILS ABSOLUTE AUTO 0.05 K/uL (0.00-0.20); BASOPHILS PERCENT AUTO 0.7 % (0.0-1.0); EOSINOPHILS ABSOLUTE AUTO 0.31 K/uL (0.00-0.45); EOSINOPHILS PERCENT AUTO 4.4 % (0.0-6.0); HEMATOCRIT 43.2 % (37.0-47.0); HEMOGLOBIN 14.2 g/dL (12.0-16.0); IMMATURE GRAN ABSOLUTE AUTO 0.02 K/uL (0.00-0.05); IMMATURE GRAN PERCENT AUTO 0.3 % (0.0-0.4); LYMPHOCYTES ABSOLUTE AUTO 1.38 K/uL (1.00-4.80); LYMPHOCYTES PERCENT AUTO 19.4 % (24.0-44.0); MEAN CORPUSCULAR HEMOGLOBIN 29.1 pg (28.0-32.0); MEAN CORPUSCULAR HGB CONC 32.9 g/dL (32.0-36.0); MEAN CORPUSCULAR VOLUME 88.5 fL (83.0-99.0); MEAN PLATELET VOLUME 9.3 fL (9.4-12.3); MONOCYTES ABSOLUTE AUTO 0.58 K/uL (0.00-0.80); MONOCYTES PERCENT AUTO 8.2 % (0.0-8.0); NEUTROPHILS ABSOLUTE AUTO 4.77 K/uL (1.80-7.70); PLATELET COUNT,PLT 292 K/uL (150-400); RED BLOOD CELL COUNT 4.88 M/uL (4.10-5.30); WHITE BLOOD CELL COUNT,WBC 7.11 K/uL (3.9-11.3)
[2025-02-24 10:55] LABS: A/G RATIO 0.8 (0.9-1.6); ALBUMIN 3.4 g/dL (3.4-5.0); BILIRUBIN TOTAL 1.5 mg/dL (0.2-1.0); CALCIUM 8.3 mg/dL (8.5-10.1); CREATININE 0.7 mg/dL (0.6-1.0); EST CRCL DRUG DOSING (CG) 92.25 mL/min; POTASSIUM,K 4.2 mmol/L (3.5-5.1); PROTEIN TOTAL,TP 7.7 g/dL (6.4-8.2)
[2025-02-24 11:01] LABS: HCG QUALITATIVE,SERUM NEGATIVE (NEG)
[2025-02-24 11:31] LABS: LACTIC ACID 0.9 mmol/L (0.4-2.0)
[2025-02-24 15:11] VITALS: BP 108/57; PULSE 101
== END 2025-02-24 12:30 | disposition left against medical advice (07) ==
LOC: MW.ED 08:47
DX: J02.9 Acute pharyngitis, unspecified (principal); E86.0 Dehydration; E03.9 Hypothyroidism, unspecified; Z79.899 Other long term (current) drug therapy; Z88.5 Allergy status to narcotic agent; Z88.6 Allergy status to analgesic agent; Z91.013 Allergy to seafood
CPT/HCPCS: 36415; 80053; 83605; 83735; 84703; 85025; 86308; 87428; 87651; 96360; 99284; J7030; 99283

== ENCOUNTER 2025-03-22 10:56 | Emergency (ER) | payer MEDICAID ==
[2025-03-22 11:32] VITALS: BP 130/75; PULSE 109
[2025-03-22 11:55] LABS: APPEARANCE,URINE SLT CLOUDY; BILIRUBIN,URINE NEGATIVE (NEGATIVE); COLOR,URINE YELLOW; GLUCOSE,URINE NEGATIVE (NEGATIVE); KETONES,URINE NEGATIVE (NEGATIVE); LEUKOCYTE ESTERASE,URINE NEGATIVE (NEGATIVE); NITRITE,URINE NEGATIVE (NEGATIVE); OCCULT BLOOD,URINE SMALL (NEGATIVE); PROTEIN,URINE NEGATIVE (NEGATIVE); UROBILINOGEN,URINE 0.2 EU/dL (<2.0)
[2025-03-22 12:11] LABS: BASOPHILS ABSOLUTE AUTO 0.05 K/uL (0.00-0.20); BASOPHILS PERCENT AUTO 0.7 % (0.0-1.0); EOSINOPHILS ABSOLUTE AUTO 0.34 K/uL (0.00-0.45); EOSINOPHILS PERCENT AUTO 4.7 % (0.0-6.0); HEMATOCRIT 41.5 % (37.0-47.0); HEMOGLOBIN 13.6 g/dL (12.0-16.0); IMMATURE GRAN ABSOLUTE AUTO 0.01 K/uL (0.00-0.05); IMMATURE GRAN PERCENT AUTO 0.1 % (0.0-0.4); LYMPHOCYTES ABSOLUTE AUTO 1.78 K/uL (1.00-4.80); LYMPHOCYTES PERCENT AUTO 24.8 % (24.0-44.0); MEAN CORPUSCULAR HEMOGLOBIN 29.4 pg (28.0-32.0); MEAN CORPUSCULAR HGB CONC 32.8 g/dL (32.0-36.0); MEAN CORPUSCULAR VOLUME 89.6 fL (83.0-99.0); MEAN PLATELET VOLUME 9.4 fL (9.4-12.3); MONOCYTES ABSOLUTE AUTO 0.61 K/uL (0.00-0.80); MONOCYTES PERCENT AUTO 8.5 % (0.0-8.0); NEUTROPHILS ABSOLUTE AUTO 4.38 K/uL (1.80-7.70); NEUTROPHILS PERCENT AUTO 61.2 % (41.0-71.0); PLATELET COUNT,PLT 278 K/uL (150-400); RED BLOOD CELL COUNT 4.63 M/uL (4.10-5.30); WHITE BLOOD CELL COUNT,WBC 7.17 K/uL (3.9-11.3)
[2025-03-22 12:15] LABS: BACTERIA,URINE 2+ (NEGATIVE); EPITHELIAL CELLS,URINE MANY (NONE-FEW); MUCUS,URINE HEAVY (NONE-MOD); RBC,URINE 0-2 (0-2/HPF)
[2025-03-22 12:32] LABS: A/G RATIO 0.9 (0.9-1.6); ALBUMIN 3.7 g/dL (3.4-5.0); BILIRUBIN TOTAL 0.8 mg/dL (0.2-1.0); CALCIUM 8.5 mg/dL (8.5-10.1); CREATININE 0.9 mg/dL (0.6-1.0); EST CRCL DRUG DOSING (CG) 71.75 mL/min
[2025-03-22 13:24] LABS: C. TRACHOMATIS BY PCR NOT DETECTED; N. GONORRHOEAE BY PCR NOT DETECTED
== END 2025-03-22 13:01 | disposition left against medical advice (07) ==
LOC: MW.ED 10:56
DX: A60.00 Herpesviral infection of urogenital system, unspecified (principal); E03.9 Hypothyroidism, unspecified; Z79.890 Hormone replacement therapy; Z88.5 Allergy status to narcotic agent; Z88.8 Allergy status to other drugs, medicaments and biological substances; Z91.013 Allergy to seafood
CPT/HCPCS: 36415; 80053; 81001; 83735; 85025; 87491; 87591; 99283; 99284

== ENCOUNTER 2025-08-18 10:53 | Emergency (ER) | payer MEDICAID ==
[2025-08-18] MEDS: Ketorolac 30 MG/ML SDV IVPUSH ONE (12:12)
[2025-08-18 12:37] LABS: BASOPHILS ABSOLUTE AUTO 0.03 K/uL (0.00-0.20); BASOPHILS PERCENT AUTO 0.5 % (0.0-1.0); EOSINOPHILS ABSOLUTE AUTO 0.12 K/uL (0.00-0.45); EOSINOPHILS PERCENT AUTO 1.9 % (0.0-6.0); IMMATURE GRAN ABSOLUTE AUTO 0.02 K/uL (0.00-0.05); IMMATURE GRAN PERCENT AUTO 0.3 % (0.0-0.4); LYMPHOCYTES ABSOLUTE AUTO 1.11 K/uL (1.00-4.80); LYMPHOCYTES PERCENT AUTO 18.0 % (24.0-44.0); MEAN PLATELET VOLUME 9.3 fL (9.4-12.3); MONOCYTES ABSOLUTE AUTO 0.53 K/uL (0.00-0.80); MONOCYTES PERCENT AUTO 8.6 % (0.0-8.0); NEUTROPHILS ABSOLUTE AUTO 4.37 K/uL (1.80-7.70); NEUTROPHILS PERCENT AUTO 70.7 % (41.0-71.0); NRBC ABSOLUTE 0.00 K/uL (0.00-0.02); NRBC PERCENT 0.0 /100WBC (0.0-0.2); PLATELET COUNT,PLT 244 K/uL (150-400); RED BLOOD CELL COUNT 5.46 M/uL (4.10-5.30); WHITE BLOOD CELL COUNT,WBC 6.18 K/uL (3.9-11.3)
[2025-08-18] MEDS: fentaNYL 50 MCG/ML SDV IVPUSH ONE (12:52)
[2025-08-18 13:08] LABS: A/G RATIO 0.8 (0.9-1.6); ALANINE AMINOTRANSFERASE,ALT 48 IU/L (14-63); ASPARTATE AMNIOTRANSFERASE,AST 36 IU/L (15-37); BILIRUBIN TOTAL 0.7 mg/dL (0.2-1.0); BLOOD UREA NITROGEN,BUN 13 mg/dL (7.0-18.0); CARBON DIOXIDE,CO2 29.0 mmol/L (21.0-32.0); CHLORIDE,CL 106 mmol/L (98-107); CREATININE 0.7 mg/dL (0.6-1.0); EST CRCL DRUG DOSING (CG) 83.65 mL/min; ETHANOL BLOOD MEDICAL <3 mg/dL; GLUCOSE RANDOM 93 mg/dL (74-106); POTASSIUM,K 3.8 mmol/L (3.5-5.1); PROTEIN TOTAL,TP 8.5 g/dL (6.4-8.2); SODIUM,NA 142 mmol/L (136-145)
[2025-08-18 13:09] LABS: ESTIMATED GFR 111 mL/min (>60)
[2025-08-18 13:21] LABS: GLUCOSE,URINE NEGATIVE (NEGATIVE); OCCULT BLOOD,URINE NEGATIVE (NEGATIVE)
[2025-08-18 13:30] LABS: AMPHETAMINES SCREEN, URINE PRESUMPTIVE POSITIVE (CUTOFF=500); BUPRENORPHINE SCREEN,URINE NEGATIVE (CUTOFF=10); METHADONE SCREEN, URINE NEGATIVE (CUTOFF=200); METHAMPHETAMINES SCREEN, URINE PRESUMPTIVE POSITIVE (CUTOFF=500); OXYCODONE SCREEN,URINE NEGATIVE (CUT0FF=100); PCP SCREEN,URINE NEGATIVE (CUTOFF=25); THC SCREEN,URINE 20 NG/ML NEGATIVE (CUTOFF=50)
[2025-08-18 13:32] LABS: APPEARANCE,URINE HAZY
[2025-08-18 13:33] LABS: SQUAMOUS EPITHELIAL CELLS,UR FEW
[2025-08-18 14:03] VITALS: BP 118/64; PULSE 96
== END 2025-08-18 14:00 | disposition home or self-care (01) ==
LOC: MW.ED 10:53
DX: R07.89 Other chest pain (principal); E86.0 Dehydration; E03.9 Hypothyroidism, unspecified; Z91.013 Allergy to seafood; Z88.5 Allergy status to narcotic agent; Z88.8 Allergy status to other drugs, medicaments and biological substances; Z79.890 Hormone replacement therapy; Z79.84 Long term (current) use of oral hypoglycemic drugs; Z79.899 Other long term (current) drug therapy; W19.XXXA Unspecified fall, initial encounter
CPT/HCPCS: 36415; 70450; 71250; 72125; 74176; 80053; 80305; 80307; 81001; 81025; 83605; 83690; 84484; 85025; 93005; 96361; 96374; 96375; 99284; A9270; J1885; J3010; J7030; 93010